=== PATIENT | male | born 1930 | race Caucasian/White ===

== ENCOUNTER 2016-06-28 12:10 | Inpatient (IN) | payer OTHER ==
--- NOTE | 2016-06-28 12:23 | CPEKG ---
Heart Rate: 85 RR Interval: 706 P-R Interval: 208 QRSD Interval: 102 QT Interval: 388 QTC Interval: 462 P [place]: 58 QRS [place]: -56 T Wave [place]: 82 EKG Severity - ABNORMAL ECG - EKG Impression: SINUS RHYTHM EKG Impression: LEFT ANTERIOR FASCICULAR BLOCK EKG Impression: PROBABLE ANTEROSEPTAL INFARCT, AGE INDETERM Electronically Signed By: Ramos Ring 28-Jun-2016 13:44:19
--- NOTE | 2016-06-28 12:37 | EDPHY ---
H & P Stated Complaint: resp Time Seen by Provider: 06/28/16 12:36 - Personal History Tetanus Vaccine Date: 30+ years ago - Medical/Surgical History Hx Asthma: No Hx Chronic Respiratory Disease: Yes Hx Diabetes: No Hx Cardiac Disease: Yes Hx Renal Disease: No Hx Cirrhosis: No Hx Alcoholism: No Hx HIV/AIDS: No Hx Splenectomy or Spleen Trauma: No Other PMH: PE,HIGH CHOL,PROSATE ISSUES - Social History Smoking Status: Never smoked Constitutional: Initial Vital Signs Temperature (C) 36.4 C 06/28/16 12:17 Heart Rate 86 06/28/16 12:17 Respiratory Rate 20 06/28/16 12:17 Blood Pressure 129/85 H 06/28/16 12:17 O2 Sat (%) 82 L 06/28/16 12:17 O2 Delivery Mode Room Air Allergies/Adverse Reactions: No Known Allergies Allergy (Unverified 02/21/13 11:22) Home Medications: Medication Instructions Recorded Aspirin [Aspirin 81mg (OTC)] 162 mg PO HS 01/11/12 Cyanocobalamin (Vitamin B-12) 100 mcg PO DAILY 01/11/12 [Vitamin B-12] Herbals/Supplements -Info Only 1 each PO AD 01/11/12 [place]-3 Fatty Acids/Fish Oil 1,000 mg PO DAILY 01/11/12 [[place] 3 1,000 mg Softgel] Ubidecarenone [Co Q-10] 100 mg PO HS 01/11/12 Atorvastatin Calcium [Lipitor 80 40 mg PO DAILY 01/28/12 mg] Ofloxacin 0.3% [Ocuflox 0.3%] 2 drops EACHEYE QID #1 opht.[id number] 11/13/13 Medical Decision Making - Diagnostics Imaging: Discussed imaging studies w/ call center analyst Radiologist, I viewed and interpreted images myself ED Course/Re-evaluation: CHIEF COMPLAINT: Shortness of breath HISTORY OF PRESENT ILLNESS: 85-year-old gentleman who has recurrent pulmonary emboli and claims that he is taking his Coumadin diligently. Was started on oxygen this past Sunday and he claims he ordered himself and has not really seen a doctor for this. [place] like his oxygen was getting short today and he laid on the ground until he could catch his breath because he was feeling lightheaded. His neighbor who checks on him came in and found him on the ground and called 911. The patient had a room air oxygen saturation of 82%. His oxygen tank was not being utilized. Patient states that he remembers the event specifically any lay down himself so that he would not fall down and he has no injuries and he did not pass out. He denies any chest pain chest pressure or shortness of breath any worse than usual. He says since his recurrent pulmonary emboli he has really had a significant decreased ability to function and can only walk about 100 feet without getting fairly short of breath. REVIEW OF SYSTEMS: A 10 point review of systems was performed and is negative with the exception of the elements mentioned in the history of present illness. PHYSICAL EXAM: HR, BP, O2 Sat, RR. Temp noted. Patient is hypoxemic on room air at 80 82% on 4 L he is in the 90s General Appearance: Alert, well hydrated, appropriate, and non-toxic appearing. Head: Atraumatic without scalp tenderness or obvious injury Eyes: Pupils equal, round, reactive to light and accommodation, EOMI, no trauma , no injection. Ears: Clear bilaterally, no perforation, normal landmarks Nose: Atraumatic, no rhinorrhea, clear. Throat: There is no erythema or exudates, no lesions, normal tonsils, mucus membranes moist. Neck: Supple, 2+ carotid upstroke, nontender, no lymphadenopathy. Respiratory: No retractions, no distress, no wheezes, and no accessory muscle use. Lungs are clear to auscultation bilaterally. Cardiovascular: Regular rate and rhythm, no murmurs, rubs, or gallops. Bilateral carotid, radial, dorsalis pedis, and posterior tibial pulses intact. Good capillary refill all extremities. Gastrointestinal: Abdomen is soft, nontender, non-distended, no masses, no rebound, no guarding, no peritoneal signs. Musculoskeletal: Normal active ROM of all extremities, atraumatic. Neurological: Alert, appropriate, and interactive. The patient has normal DTRs and non-focal cranial nerves, motor, sensory, and cerebellar exam. Skin: No rashes, good turgor, no nodules on palpation. Past medical history: Recurrent pulmonary emboli, patient is a poor historian denies any other medical problems Past surgical history: Noncontributory Family history: Noncontributory Social history: Single, lives alone, has neighbors check on him, denies tobacco drug or alcohol abuse DIAGNOSTICS/PROCEDURES/CRITICAL CARE TIME: The 12 lead EKG was interpreted by myself. See hard copy and/or "tracemaster" electronic copy for interpretation. Normal sinus mechanism with a Q in 3 and inverted T-waves in V3 through V6. I am awaiting old EKG for comparison Study: CT angiography of the chest Indication: history of pulmonary emboli with significant hypoxemia Results: CT scan of the lungs was obtained. The results of the study are additional pulmonary emboli. The study was read by the radiologist, Dr. Gonsales. I viewed the images myself on the PACS system. DIFFERENTIAL DIAGNOSIS: The differential diagnosis for the patient's shortness of breath and hypoxemia included but was not limited to pneumonia, myocardial infarction, acute mountain sickness, high altitude pulmonary edema, congestive heart failure, and pulmonary embolus. MEDICAL DECISION MAKING: This patient has an EKG which may show some anterior lateral ischemia but I am waiting for an old EKG. He has had a history of pulmonary emboli a.m. CT checking in angio of his chest based on his hypoxemia. His i-STAT looks good and his creatinine is okay for angiography. I am also checking laboratory studies. I received a copy of this patient's EKG from February of 2013 any does appear to have similar inverted T-waves in the V3 through V6 leads. The Q-wave in lead 3 however is new This patient's troponin is elevated and so is his BNP. I am still awaiting chest angiography but we will admit him to the hospital for further evaluation and workup due to his hypoxemia potentially a myocardial infarction versus heart strain. I have paged the hospitalist and advertising dispatch clerk at 1:10 p.m. 1:[address] Spoke to hospitalist service. Dr. Simon accepts admission. 1:21 Spoke with [facility]. They will consult and order an echocardiogram. 1:27 Dr. Gonsales, radiologist, reports additional pulmonary embolism. The patient is nontherapeutic on Coumadin. Plan to administer 15mg PO Xarelto to anticoagulate the patient to therapeutic levels. - Data Points Laboratory Results: Laboratory Results 06/28/16 12:10 06/28/16 12:10 06/28/16 06/28/16 06/28/16 12:41 12:10 12:10 WBC RBC Hgb POC Hgb 11.9 gm/dL L gm/dL (14.5-17.3) Hct POC Hct 35 % L % (42.8-50.6) MCV MCH MCHC RDW Plt Count MPV Neut % (Auto) Lymph % (Auto) [place] % (Auto) Eos % (Auto) Baso % (Auto) Nucleat RBC Rel Count Absolute Neuts (auto) Absolute Lymphs (auto) Absolute Monos (auto) Absolute Eos (auto) Absolute Basos (auto) Absolute Nucleated RBC Immature Gran % Immature Gran # PT 17.0 SEC H SEC (12.0-15.0) INR 1.39 H (0.83-1.16) APTT 33.5 SEC SEC (23.0-38.0) POC Sodium 143 mEq/L mEq/L (134-144) Sodium 140 mEq/L mEq/L (134-144) POC Potassium 4.2 mEq/L mEq/L (3.3-5.0) Potassium 3.9 mEq/L mEq/L (3.5-5.2) POC Chloride 107 mEq/L mEq/L (96-108) Chloride 104 mEq/L mEq/L (97-110) Carbon Dioxide 22 mEq/l mEq/l (22-31) Anion Gap 14 mEq/L mEq/L (8-16) POC BUN 28 mg/dL H mg/dL (7-23) BUN 24 mg/dL H mg/dL (7-23) Creatinine 1.1 mg/dL mg/dL (0.7-1.3) POC Creatinine 1.0 mg/dL mg/dL (0.8-1.5) Estimated GFR > 60 Glucose 219 mg/dL H mg/dL (70-100) POC Glucose 133 mg/dL H mg/dL (70-100) Calcium 9.5 mg/dL mg/dL (8.5-10.4) Troponin I 0.292 ng/mL H ng/mL (0-0.034) NT-Pro-B Natriuret Pep 8160 pg/mL H pg/mL (0-450) 06/28/16 12:10 WBC 12.60 10^3/uL H 10^3/uL (3.80-9.50) RBC 4.99 10^6/uL 10^6/uL (4.40-6.38) Hgb 14.7 g/dL g/dL (13.7-17.5) POC Hgb Hct 44.4 % % (40.0-51.0) POC Hct MCV 89.0 fL fL (81.5-99.8) MCH 29.5 pg pg (27.9-34.1) MCHC 33.1 g/dL g/dL (32.4-36.7) RDW 15.9 % H % (11.5-15.2) Plt Count 271 10^3/uL 10^3/uL (150-400) MPV 10.8 fL fL (8.7-11.7) Neut % (Auto) 68.0 % % (39.3-74.2) Lymph % (Auto) 21.7 % % (15.0-45.0) [place] % (Auto) 8.5 % % (4.5-13.0) Eos % (Auto) 0.3 % L % (0.6-7.6) Baso % (Auto) 0.5 % % (0.3-1.7) Nucleat RBC Rel Count 0.0 % % (0.0-0.2) Absolute Neuts (auto) 8.56 10^3/uL H 10^3/uL (1.70-6.50) Absolute Lymphs (auto) 2.74 10^3/uL 10^3/uL (1.00-3.00) Absolute Monos (auto) 1.07 10^3/uL H 10^3/uL (0.30-0.80) Absolute Eos (auto) 0.04 10^3/uL 10^3/uL (0.03-0.40) Absolute Basos (auto) 0.06 10^3/uL 10^3/uL (0.02-0.10) Absolute Nucleated RBC 0.00 10^3/uL 10^3/uL (0-0.01) Immature Gran % 1.0 % % (0.0-1.1) Immature Gran # 0.13 10^3/uL H 10^3/uL (0.00-0.10) PT INR APTT POC Sodium Sodium POC Potassium Potassium POC Chloride Chloride Carbon Dioxide Anion Gap POC BUN BUN Creatinine POC Creatinine Estimated GFR Glucose POC Glucose Calcium Troponin I NT-Pro-B Natriuret Pep Medications Given: Discontinued Medications Sodium Chloride (Ns) 1,000 mls @ 0 mls/hr IV ONCE ONE PRN Reason: Wide Open Stop: 06/28/16 12:50 Last Admin: 06/28/16 12:50 Dose: 1,000 mls Point of Care Test Results: 06/28/16 12:41 POC Sodium 143 POC Potassium 4.2 POC Chloride 107 POC BUN 28 H POC Creatinine 1.0 POC Glucose 133 H Departure - Departure Disposition: [facility] Inpatient Acute Clinical Impression: Chronic obstructive pulmonary disease with acute exacerbation, Chronic hypoxemic respiratory failure, Elevated troponin I level, Elevated troponin Acute exacerbation of congestive heart failure Qualifiers: Congestive heart failure type: systolic Qualified Code(s): I50.23 - Acute on chronic systolic (congestive) heart failure Pulmonary embolism Qualifiers: Pulmonary embolism type: other Chronicity: acute Acute cor pulmonale presence: with acute cor pulmonale Qualified Code(s): I26.09 - Other pulmonary embolism with acute cor pulmonale Condition: Fair Referrals: Patient,NotPresent [Unknown] - As per Instructions Report Scribed for: Ramos Ring Report Scribed by: Fadumo Ospina Date of Report: 06/28/16 Time of Report: 13:31
[2016-06-28 12:45] LABS: ABSOLUTE IMMATURE GRANULOCYTES 0.13 10^3/uL (0.00-0.10); ADD DIFF? NO; ADD MORPH? NO; ADD SCAN? NO; ATYPICAL LYMPHOCYTE FLAG 0 (0-99); FRAGMENT RBC FLAG 0 (0-99); HEMATOCRIT 44.4 % (40.0-51.0); HEMOGLOBIN 14.7 g/dL (13.7-17.5); LEFT SHIFT FLG 0 (0-99); LIPEMIA HEMOLYSIS FLAG 80 (0-99); MEAN CELL HEMOGLOBIN 29.5 pg (27.9-34.1); MEAN CELL HEMOGLOBIN CONCENTR. 33.1 g/dL (32.4-36.7); MEAN PLATELET VOLUME 10.8 fL (8.7-11.7); PLATELET CLUMPS FLAG 10 (0-99); PLATELET COUNT 271 10^3/uL (150-400); RED BLOOD CELL COUNT 4.99 10^6/uL (4.40-6.38); RED CELL DISTRIBUTION WIDTH 15.9 % (11.5-15.2)
[2016-06-28] MEDS ORDERED: NS 1,000 ML IV ONE (12:49)
[2016-06-28 12:52] LABS: ANION GAP 14 mEq/L (8-16); CALCIUM 9.5 mg/dL (8.5-10.4); CARBON DIOXIDE 22 mEq/l (22-31); CHLORIDE 104 mEq/L (97-110); CREATININE 1.1 mg/dL (0.7-1.3); GLOMERULAR FILTRATION RATE > 60; GLUCOSE 219 mg/dL (70-100); POTASSIUM 3.9 mEq/L (3.5-5.2); SODIUM 140 mEq/L (134-144)
[2016-06-28] MEDS ORDERED: IOPAMIDOL (ISOVUE 370) 100 ML BTL IV ONE (12:57)
[2016-06-28 13:04] LABS: TROPONIN I 0.292 ng/mL (0-0.034)
[2016-06-28 13:12] LABS: INR 1.39 (0.83-1.16)
[2016-06-28 13:13] LABS: APTT 33.5 SEC (23.0-38.0)
[2016-06-28] MEDS ORDERED: RIVAROXABAN 15 MG TAB PO ONE (13:45)
--- NOTE | 2016-06-28 15:24 | PDGENHP ---
History and Physical - Chief Complaint SOB - History of Present Illness 85 yo male with hx of chronic PE reportedly on Coumadin presents with Hypoxemia and SOB and found to have Acute on Chronic P.E. During my evaluation he is a very poor historian and appears mildly confused. I have reviewed his records extensively and it appears that he has been a poor historian for several years. He was last seen at [facility] in 2013. Per his report he has been feeling SOB and with intermittent CP for about 3 weeks with worsening of this over the last 3 days. He started himself on portable Oxygen about a week ago. Today he felt like his oxygen was getting short and he laid on the ground until he could catch his breath because he was feeling lightheaded. His neighbor who checks on him came in and found him on the ground and called 911. The patient had a room air oxygen saturation of 82%. His oxygen tank was not being utilized. Patient states that he remembers the event specifically any lay down himself so that he would not fall down and he has no injuries and he did not pass out. He denies any chest pain chest pressure or shortness of breath any worse than usual. He says since his recurrent pulmonary emboli he has really had a significant decreased ability to function and can only walk about 100 feet without getting fairly short of breath. He denies any current CP or SOB and feels that he is better since arriving at the E.D. He has been started on Xarelto and given IVF. He denies any leg swelling or palpitations. He denies fever. There was no evidence of pneumonia on Chest CT. He is a life long smoker, but now report that he has quite. He denies cough. He is alert and oriented. 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 Walks independently. BPH PSHx: Tonsillectomy, Cataract surgery, cardiac cath Family history: Noncontributory Social history: Single, lives alone, has neighbors check on him, denies tobacco drug or alcohol abuse EKG: No acute changes, personally interpreted CTA chest: + bilateral P.E's. History Information - Allergies/Home Medication List Allergies/Adverse Reactions: No Known Allergies Allergy (Unverified 02/21/13 11:22) Home Medications: Aspirin [Aspirin 81mg (OTC)] 162 mg PO HS 01/11/12 [Last Taken 02/20/13] Cyanocobalamin (Vitamin B-12) [Vitamin B-12] 100 mcg PO DAILY 01/11/12 [Last Taken 02/21/13] Herbals/Supplements -Info Only 1 each PO AD 01/11/12 [Last Taken Unknown] [place]ley-3 Fatty Acids/Fish Oil [[place] 3 1,000 mg Softgel] 1,000 mg PO DAILY [Last Taken 02/21/13] Ubidecarenone [Co Q-10] 100 mg PO HS 01/11/12 [Last Taken 02/20/13] Atorvastatin Calcium [Lipitor 80 mg] 40 mg PO DAILY 01/28/12 [Last Taken ] I have personally reviewed and updated: family history, medical history, social history, surgical history - Social History Smoking Status: Never smoked Review of Systems ROS: 10pt was reviewed & negative except for what was stated in HPI & below Physical Exam Temp Pulse Resp BP Pulse Ox 36.4 C 66 20 102/63 95 06/28/16 12:23 06/28/16 15:14 06/28/16 15:14 06/28/16 15:14 06/28/16 15:14 O2 (L/minute) 4 Constitutional: no apparent distress, appears nourished Eyes: PERRL, EOMI Ears, Nose, Mouth, Throat: hearing normal, dry mucous membranes, No moist mucous membranes Cardiovascular: regular rate and rhythym, no murmur, rub, or gallop, systolic murmur, No JVD Respiratory: no respiratory distress, reduced air movement, No clear to auscultation Gastrointestinal: normoactive bowel sounds, soft, non-tender abdomen, no palpable masses Genitourinary: no bladder fullness Skin: warm Neurologic: AAOx3 Psychiatric: poor insight, poor memory Lymph, Heme, Immunologic: no cervical LAD Lab Data & Imaging Review 06/28/16 12:10 06/28/16 12:10 WBC 12.60 10^3/uL (3.80-9.50) H 06/28/16 12:10 RBC 4.99 10^6/uL (4.40-6.38) 06/28/16 12:10 Hgb 14.7 g/dL (13.7-17.5) 06/28/16 12:10 POC Hgb 11.9 gm/dL (14.5-17.3) L 06/28/16 12:41 Hct 44.4 % (40.0-51.0) 06/28/16 12:10 POC Hct 35 % (42.8-50.6) L 06/28/16 12:41 MCV 89.0 fL (81.5-99.8) 06/28/16 12:10 MCH 29.5 pg (27.9-34.1) 06/28/16 12:10 MCHC 33.1 g/dL (32.4-36.7) 06/28/16 12:10 RDW 15.9 % (11.5-15.2) H 06/28/16 12:10 Plt Count 271 10^3/uL (150-400) 06/28/16 12:10 MPV 10.8 fL (8.7-11.7) 06/28/16 12:10 Neut % (Auto) 68.0 % (39.3-74.2) 06/28/16 12:10 Lymph % (Auto) 21.7 % (15.0-45.0) 06/28/16 12:10 [place] % (Auto) 8.5 % (4.5-13.0) 06/28/16 12:10 Eos % (Auto) 0.3 % (0.6-7.6) L 06/28/16 12:10 Baso % (Auto) 0.5 % (0.3-1.7) 06/28/16 12:10 Nucleat RBC Rel Count 0.0 % (0.0-0.2) 06/28/16 12:10 Absolute Neuts (auto) 8.56 10^3/uL (1.70-6.50) H 06/28/16 12:10 Absolute Lymphs (auto) 2.74 10^3/uL (1.00-3.00) 06/28/16 12:10 Absolute Monos (auto) 1.07 10^3/uL (0.30-0.80) H 06/28/16 12:10 Absolute Eos (auto) 0.04 10^3/uL (0.03-0.40) 06/28/16 12:10 Absolute Basos (auto) 0.06 10^3/uL (0.02-0.10) 06/28/16 12:10 Absolute Nucleated RBC 0.00 10^3/uL (0-0.01) 06/28/16 12:10 Immature Gran % 1.0 % (0.0-1.1) 06/28/16 12:10 Immature Gran # 0.13 10^3/uL (0.00-0.10) H 06/28/16 12:10 PT 17.0 SEC (12.0-15.0) H 06/28/16 12:10 INR 1.39 (0.83-1.16) H 06/28/16 12:10 APTT 33.5 SEC (23.0-38.0) 06/28/16 12:10 POC Sodium 143 mEq/L (134-144) 06/28/16 12:41 Sodium 140 mEq/L (134-144) 06/28/16 12:10 POC Potassium 4.2 mEq/L (3.3-5.0) 06/28/16 12:41 Potassium 3.9 mEq/L (3.5-5.2) 06/28/16 12:10 POC Chloride 107 mEq/L (96-108) 06/28/16 12:41 Chloride 104 mEq/L (97-110) 06/28/16 12:10 Carbon Dioxide 22 mEq/l (22-31) 06/28/16 12:10 Anion Gap 14 mEq/L (8-16) 06/28/16 12:10 POC BUN 28 mg/dL (7-23) H 06/28/16 12:41 BUN 24 mg/dL (7-23) H 06/28/16 12:10 Creatinine 1.1 mg/dL (0.7-1.3) 06/28/16 12:10 POC Creatinine 1.0 mg/dL (0.8-1.5) 06/28/16 12:41 Estimated GFR > 60 06/28/16 12:10 Glucose 219 mg/dL (70-100) H 06/28/16 12:10 POC Glucose 133 mg/dL (70-100) H 06/28/16 12:41 Calcium 9.5 mg/dL (8.5-10.4) 06/28/16 12:10 Troponin I 0.292 ng/mL (0-0.034) H 06/28/16 12:10 NT-Pro-B Natriuret Pep 8160 pg/mL (0-450) H 06/28/16 12:10 Assessment & Plan Assessment: Acute exacerbation of congestive heart failure (Acute) Chronic hypoxemic respiratory failure (Acute) Chronic obstructive pulmonary disease with acute exacerbation (Acute) Elevated troponin (Acute) Elevated troponin I level (Acute) Pulmonary embolism (Acute) Plan: #Acute on Chronic Bilateral P.E. #Query Dehydration. -s/p IVF in the E.D. #Poor historian #Encephalopathy, etiology unclear. Unclear baseline. #Indeterminate troponin with hx of CAD #HLD Hx of CVA Plan: Admit continue with Xarelto which was started in the E.D. It is unclear if he has been taking his coumadin or not. A review of the medical record looks like he has been on it intermittently. Do not suspect acute Cardiac event. Given slight elevated trop will obtain serial trops and EKG. Suspect slight elevation is due to cardiac strain. A TTE has been ordered and this is pending. Cardiac evaluation by [facility] is pending Continue home meds which are being compiled Will provide small amount of additional IVF I do not see a clear source of infection and no evidence of pneumonia. slight leukocytosis noted. Will follow clinically. Denies fevers. Reports feeling better already PT/OT Continue home meds as appropriate. As of this note, the medication list has not been compiled. He denies taking any meds other than supplements.
[2016-06-28] MEDS ORDERED: HYDROCODONE/APAP 5/325 TAB PO PRN (15:39)
[2016-06-28] MEDS ORDERED: ONDANSETRON DISINTEGRATING 4 MG TAB PO PRN (15:39)
[2016-06-28] MEDS ORDERED: ONDANSETRON 4 MG/2 ML VIAL IVP PRN (15:39)
[2016-06-28] MEDS ORDERED: ALBUTEROL 3 ML DEYVIAL IH PRN (15:39)
[2016-06-28] MEDS ORDERED: ACETAMINOPHEN 325 MG TAB PO PRN (15:39)
[2016-06-28] MEDS ORDERED: NS 500 ML IV SCH (15:45)
--- NOTE | 2016-06-28 16:43 | ECHO ---
[id number] + + [address] : : [place] [address] : : [phone] + + Adult Echocardiographic Report + ------+ :Name: BILL WEST Marin Date: 06/28/2016 01:45 PM : : Hospital Admission Number: [id number] Locati on: ER: :: 1930 Gender: Male Height: 68 in : :Age: 85 yrs Race: WH Weight: 155 lb : :Reason For Study: elev bnp and mild trop bump : : BSA: 1.8 meter s2 : :History: cad lung disease : + ------+ MMode/2D Measurements \T\ Calculations IVSd: 1.1 cm LVIDd: 3.8 cm FS: 24.7 % Ao root diam: LVPWd: 0.67 cm LVIDs: 2.8 cm EDV(Teich): 60.4 ml3.1 cm ESV(Teich): 30.3 ml EF(Teich): 49.8 % LVOT diam: 3.5 cm LVLd ap4: 8.0 cm SV(MOD-sp4): LVOT area: EDV(MOD-sp4): 42.0 ml 9.6 cm2 79.0 ml LVLs ap4: 6.9 cm ESV(MOD-sp4): 37.0 ml EF(MOD-sp4): 53.2 % Normal Measurement Values: + + :LVIDd (3.5-5.7cm) IVSd (0.6-1.1cm) LVPWd (0.6-1.1cm) Aortic Root (2.0-3.7cm)Left Atrium (1.5-4.0cm): :LV Vol(d) (76-115ml) LV Vol(s) (29-48ml) Ejec Fraction (50-65%)PV Wan (0.6- 1.2m/s) TV Wan (0.4-1.0m/s) : :MV E Wan (0.8-1.0m/s)MV A Wan (0.3-1.0m/s)LVOT Wan (0.7-1.2m/s) Asc Ao Wan ( 0.9-1.8m/s) : + + Doppler Measurements \T\ Calculations MV E max wan: Ao V2 max: LV V1 max: PA V2 max: 51.3 cm/sec 114.0 cm/sec 72.1 cm/sec 56.3 cm/sec MV A max wan: Ao max P.2 mmHgLV V1 max PG: PA max P.4 cm/sec MARCELLO(V,D): 6.1 cm2 2.1 mmHg 1.3 mmHg MV E/A: 0.60 MV dec time: 0.23 sec TR max wan: 398.0 cm/sec TR max P.4 mmHg RAP systole: 10.0 mmHg RVSP(TR): 73.4 mmHg Left Ventricle The left ventricle is normal in size. There is normal left ventricular wall thickness. Left ventricular systolic function is low normal. Ejection Fraction = 45-50%. There is Doppler evidence for diastolic dysfunction. Distal anterior septum is bright and hypokinetic consistent with old GA. It is difficult to rule out new wall motion abnormalities due to poor endocardial definition. Flattened septum is consistent with RV pressure/volume overload. Right Ventricle The right ventricle is mildly dilated. The right ventricular systolic function is mildly reduced. Atria The left atrial size is normal. Right atrial size is normal. A dilated inferior vena cava suggests increased right atrial pressure. Mitral Valve The mitral valve is normal in structure and function. There is mild mitral regurgitation. Tricuspid Valve The tricuspid valve is normal in structure and function. There is no tricuspid stenosis. There is moderate tricuspid regurgitation. Right ventricular systolic pressure is 73mmHg. There is Doppler evidence for severe pulmonary hypertension. Aortic Valve The aortic valve is trileaflet. There is mild aortic valve calcification. There is no aortic stenosis. There is no aortic insufficiency. Pulmonic Valve The pulmonic valve is not well visualized. Great Vessels The aortic root is normal size. Pericardium/Pleural There is no pericardial effusion. Conclusion A two-dimensional transthoracic echocardiogram with M-mode and Doppler was performed. The study was technically difficult. (1) Left ventricular systolic ejection fraction was mildly reduced (45-50%) - anteroseptal hypokinesis was noted (2) Diastolic dysfunction was present (3) No left ventricular hypertrophy (4) Mild dilation of the right ventricular cavity with mild reduction in systolic function (5) Normal atrial dimensions (6) Mild mitral regurgitation (7) Trileaflet aortic valve with mild sclerosis, no stenosis, and no appreciable insufficiency (8) Moderate tricuspid regurgitation - RVSP was estimated to be >70 mm Hg (9) Poor visualization of the pulmonic valve (10) In comparison to prior echocardiogram from 2012, there continues to be similar LVEF noted. RVSP is double what was noted on prior. Final Reading Physician: Constantine Estrada signed on 06/28/2016 04:41 PM Ordering Physician: Jacobo Gilbert Performed By: Sonya Nash
[2016-06-28] MEDS: RIVAROXABAN 15 MG TAB PO SCH (17:32)
[2016-06-29 04:59] LABS: % IMMATURE GRANULYOCYTES 0.9 % (0.0-1.1); ABSOLUTE IMMATURE GRANULOCYTES 0.09 10^3/uL (0.00-0.10); ADD DIFF? NO; ADD MORPH? NO; ADD SCAN? NO; ATYPICAL LYMPHOCYTE FLAG 0 (0-99); FRAGMENT RBC FLAG 0 (0-99); HEMATOCRIT 38.3 % (40.0-51.0); LEFT SHIFT FLG 10 (0-99); LIPEMIA HEMOLYSIS FLAG 90 (0-99); MEAN CELL HEMOGLOBIN 30.1 pg (27.9-34.1); MEAN CELL HEMOGLOBIN CONCENTR. 33.9 g/dL (32.4-36.7); MEAN CELL VOLUME 88.7 fL (81.5-99.8); MEAN PLATELET VOLUME 10.7 fL (8.7-11.7); PLATELET CLUMPS FLAG 10 (0-99); PLATELET COUNT 218 10^3/uL (150-400); RED BLOOD CELL COUNT 4.32 10^6/uL (4.40-6.38)
[2016-06-29 05:08] LABS: ANION GAP 8 mEq/L (8-16); CALCIUM 8.8 mg/dL (8.5-10.4); CARBON DIOXIDE 23 mEq/l (22-31); CHLORIDE 109 mEq/L (97-110); GLOMERULAR FILTRATION RATE > 60; GLUCOSE 87 mg/dL (70-100); POTASSIUM 4.6 mEq/L (3.5-5.2); SODIUM 140 mEq/L (134-144)
[2016-06-29 05:18] LABS: TROPONIN I 0.263 ng/mL (0-0.034)
[2016-06-29] MEDS: RIVAROXABAN 15 MG TAB PO SCH (08:06)
--- NOTE | 2016-06-29 08:38 | CPEKG ---
Heart Rate: 61 RR Interval: 984 P-R Interval: 192 QRSD Interval: 98 QT Interval: 512 QTC Interval: 516 P [place]: 50 QRS [place]: -48 T Wave [place]: 70 EKG Severity - ABNORMAL ECG - EKG Impression: SINUS RHYTHM EKG Impression: VENTRICULAR PREMATURE COMPLEX EKG Impression: LEFT ANTERIOR FASCICULAR BLOCK EKG Impression: ABNRM R PROG, CONSIDER ASMI OR LEAD PLACEMENT EKG Impression: ABNORMAL T, CONSIDER ISCHEMIA, ANT-LAT LEADS EKG Impression: PROLONGED QT INTERVAL Electronically Signed By: Maine Steiner 29-Jun-2016 12:06:31
[2016-06-29] MEDS ORDERED: NON-FORMULARY NEW DRUG (Simvastatin [Zocor] 40 MG) PO SCH (09:00)
[2016-06-29] MEDS: ATORVASTATIN CALCIUM 20 MG TAB PO SCH (09:37)
[2016-06-29] MEDS: CYANO/VITAMIN B12 1000 MCG TAB PO SCH (09:37)
[2016-06-29] MEDS ORDERED: RIVAROXABAN 10 MG TAB PO ONE (13:27)
--- NOTE | 2016-06-29 17:42 | HOSPPROG ---
Hospitalist Progress Note Assessment/Plan: * Acute PE -patient admits to cutting warfarin dose in half due to bleeding -suspect he will do better on warfarin than Xarelto -change to Lovenox bridge with re-initiation of warfarin * Troponin elevation - suspect RV strain due to large PE * Acute respiratory failure - O2 * CAD/stents * h/o CVA * Long Qt - recheck EKG in am Subjective: No complaints. Has been bleeding at home, reduced coumadin by half without talking to his doctor Objective: Vital Signs Temp Pulse Resp BP Pulse Ox 36.3 C 65 20 105/59 L 92 06/29/16 15:14 06/29/16 15:14 06/29/16 15:14 06/29/16 15:14 06/29/16 15:14 06/28/16 06/29/16 06/30/16 05:59 05:59 05:59 Output Total 175 Balance -175 PT 17.0 SEC (12.0-15.0) H 06/28/16 12:10 INR 1.39 (0.83-1.16) H 06/28/16 12:10 CTA - large PE EKG viewed, my personal interpretation is - possible long Qt Laboratory Tests 06/28/16 12:10 INR 1.39 H - Physical Exam Constitutional: no apparent distress, appears nourished, not in pain Cardiovascular: regular rate and rhythym, no murmur, rub, or gallop Respiratory: no respiratory distress, no rales or rhonchi, clear to auscultation Gastrointestinal: normoactive bowel sounds, soft, non-tender abdomen, no palpable masses Skin: no rashes or abrasions, no fluctuance, no induration Neurologic: AAOx3, sensation intact bilaterally Psychiatric: interacting appropriately, not anxious, not encephalopathic, thought process linear ICD10 Worksheet Patient Problems: Problems Problem Status Onset Acute exacerbation of congestive heart failure Acute Chronic hypoxemic respiratory failure Acute Chronic obstructive pulmonary disease with acute exacerbation Acute Elevated troponin Acute Elevated troponin I level Acute Pulmonary embolism Acute CAD - Coronary arteriosclerosis Active Pulmonary embolism Active
[2016-06-29] MEDS: WARFARIN SODIUM 5 MG TAB PO SCH (18:05)
[2016-06-29] MEDS: ENOXAPARIN 60 MG/0.6 ML SYR SC SCH (21:38)
[2016-06-30 04:58] LABS: % IMMATURE GRANULYOCYTES 0.9 % (0.0-1.1); ABSOLUTE IMMATURE GRANULOCYTES 0.07 10^3/uL (0.00-0.10); ADD DIFF? NO; ADD MORPH? NO; ADD SCAN? NO; ATYPICAL LYMPHOCYTE FLAG 10 (0-99); FRAGMENT RBC FLAG 20 (0-99); HEMATOCRIT 37.4 % (40.0-51.0); HEMOGLOBIN 12.4 g/dL (13.7-17.5); LEFT SHIFT FLG 0 (0-99); LIPEMIA HEMOLYSIS FLAG 80 (0-99); MEAN CELL HEMOGLOBIN 29.6 pg (27.9-34.1); MEAN CELL HEMOGLOBIN CONCENTR. 33.2 g/dL (32.4-36.7); MEAN CELL VOLUME 89.3 fL (81.5-99.8); MEAN PLATELET VOLUME 10.8 fL (8.7-11.7); PLATELET CLUMPS FLAG 0 (0-99); PLATELET COUNT 263 10^3/uL (150-400); RED BLOOD CELL COUNT 4.19 10^6/uL (4.40-6.38); RED CELL DISTRIBUTION WIDTH 15.9 % (11.5-15.2)
[2016-06-30 05:10] LABS: INR 2.27 (0.83-1.16); PROTIME(PATIENT) 25.2 SEC (12.0-15.0)
[2016-06-30 05:22] LABS: ANION GAP 7 mEq/L (8-16); CALCIUM 8.9 mg/dL (8.5-10.4); CARBON DIOXIDE 24 mEq/l (22-31); CHLORIDE 108 mEq/L (97-110); GLOMERULAR FILTRATION RATE > 60; GLUCOSE 90 mg/dL (70-100); MAGNESIUM 1.9 mg/dL (1.6-2.3); POTASSIUM 4.3 mEq/L (3.5-5.2); SODIUM 139 mEq/L (134-144)
--- NOTE | 2016-06-30 08:44 | CPEKG ---
Heart Rate: 53 RR Interval: 1132 P-R Interval: 184 QRSD Interval: 102 QT Interval: 452 QTC Interval: 425 P [place]: 51 QRS [place]: -57 T Wave [place]: 55 EKG Severity - ABNORMAL ECG - EKG Impression: SINUS RHYTHM EKG Impression: ATRIAL PREMATURE COMPLEX EKG Impression: LEFT ANTERIOR FASCICULAR BLOCK EKG Impression: ABNRM R PROG, CONSIDER ASMI OR LEAD PLACEMENT EKG Impression: BORDERLINE T ABNORMALITIES, ANTERIOR LEADS Electronically Signed By: Maine Steiner 30-Jun-2016 11:40:48
[2016-06-30] MEDS: ATORVASTATIN CALCIUM 20 MG TAB PO SCH (09:02)
[2016-06-30] MEDS: CYANO/VITAMIN B12 1000 MCG TAB PO SCH (09:02)
[2016-06-30] MEDS: ENOXAPARIN 60 MG/0.6 ML SYR SC SCH ×2 (09:02→21:37)
--- NOTE | 2016-06-30 16:01 | PDPCPN ---
Palliative Care Progress Note Assessment/Plan: Referring provider: Dr Sorensen Reason for consult: Complex medical decision making Symptom control HPI: Nick Adams is a 85 yo male with PMH prostate CA, CAD, CVA and recurrent PE' s admitted to the hospital for hypoxia and lightheadedness. Ct chest with acute on chronic PE. Per patient he started cutting his dose of warfarin in half 4 weeks ago due to bleeding problems. He has right sided numbness from previous CVA 9 years ago and ongoing dyspnea on exertion for the past 5 years due to PEs. He started himself on oxygen on Sunday and was found on the ground by his neighbor who called 911. Palliative care consulted for complex medical decision making. Nick states up until 9 years ago his quality of life was excellent. It decreased some when he had his CVA as he was not able to travel or play golf. He then had a PE 5 years ago which dramatically reduce his quality of life to his baseline of not being able to walk >100 feet without dyspnea. He is able to still drive and goes to the store once a week and sometimes out to lunch with a friend then but otherwise stays at home by himself. He mostly just watches tv all day. He has a neighbor who checks in on him frequently who is available to help if he needs it. He stated he would not want any life prolonging measures as his quality of life is already poor. He is hoping to be able to get back home and maintain his ADLs by himself. If he is not able to improve from current lower baseline then he would want to focus on comfort care only. Filled out a MOST form and scanned into the chart. His brother Scott is his MDPOA but they have not had a detailed discussion about his end of life wishes. Assessment: Physical: - Dyspnea: with any ambulation - oxygen as needed - fan for subjective dyspnea - can also consider low dose roxanol if severe and persists. - constipation - at risk if using opiates - bowel protocol if on opiates. Emotional/psychological: Doing ok. Has support from his neighbors and some friends. Advanced Care Planning: Is patient decisional?: Yes Code Status: DNR/DNI- comfort MD POA: brother Scott is MDPOA. Plan: He would like to return home but needs to go to rehab for a temporary stay to increase his abilities for ADLs. He is not interested in other life prolonging measures as his quality of life has been poor and is now even worse due to his inability to care for himself. 06/30/16 16:07 Subjective: I still can't catch my breathe Objective: Social History: Never , no children. Retired [employer] worked for [employer]. Used to enjoy traveling and golfing but now is only able to sit and watch TV. Has a brother in [place] whom he is close to. Also has another brother and 2 sisters but is not close to them. Has a neighbor who is very involved and "watches out for him". Medication list reviewed ROS: General: fatigue, weakness ENT: negative Resp: dyspnea GI: negative : negative MS: negative Skin: negative Neuro: negative Psych: negative Functional assessment: PPS: 50% Functional status: needs some assistance with ADLs. Vital Signs Temp Pulse Resp BP Pulse Ox 36.5 C 50 L 20 105/47 L 95 06/30/16 15:37 06/30/16 15:37 06/30/16 15:37 06/30/16 15:37 06/30/16 15:37 Laboratory Results 06/30/16 03:52 06/30/16 03:52 06/29/16 06/30/16 07/01/16 05:59 05:59 05:59 Intake Total 1400 Output Total 675 Balance 725 PT 25.2 SEC (12.0-15.0) H D 06/30/16 03:52 INR 2.27 (0.83-1.16) H 06/30/16 03:52 Physical Exam - Physical Exam General Appearance: alert, no apparent distress Respiratory: No respiratory distress, No accessory muscle use Skin: normal color, warm/dry Extremities: No pedal edema Neuro/Psych: alert, oriented x 3 ICD10 Worksheet Patient Problems: Problems Problem Status Onset Acute exacerbation of congestive heart failure Acute Chronic hypoxemic respiratory failure Acute Chronic obstructive pulmonary disease with acute exacerbation Acute Elevated troponin Acute Elevated troponin I level Acute Palliative care encounter Acute Pulmonary embolism Acute CAD - Coronary arteriosclerosis Active Pulmonary embolism Active - ICD10 Problem Qualifiers (1) Palliative care encounter
[2016-06-30] MEDS: WARFARIN SODIUM 5 MG TAB PO SCH (16:29)
--- NOTE | 2016-06-30 16:47 | HOSPPROG ---
Hospitalist Progress Note Assessment/Plan: * Acute PE -patient admits to cutting warfarin dose in half due to bleeding -suspect he will do better on warfarin than Xarelto -change to Lovenox bridge with re-initiation of warfarin -suspect high INR today due to residual Xarelto effect -continue lovenox * Troponin elevation - suspect RV strain due to large PE * Acute respiratory failure - O2 * CAD/stents * h/o CVA Subjective: needs lots of O2 with ambulation. he has changed his mind regarding rehab Objective: Vital Signs Temp Pulse Resp BP Pulse Ox 36.5 C 50 L 20 105/47 L 95 06/30/16 15:37 06/30/16 15:37 06/30/16 15:37 06/30/16 15:37 06/30/16 15:37 Laboratory Results 06/30/16 03:52 06/30/16 03:52 06/29/16 06/30/16 07/01/16 05:59 05:59 05:59 Intake Total 1400 Output Total 675 Balance 725 PT 25.2 SEC (12.0-15.0) H D 06/30/16 03:52 INR 2.27 (0.83-1.16) H 06/30/16 03:52 d/w palliative care [employer] Gabbi Schroeder - patient wishes comfort mostly. Wants PE tx and rehab EKG viewed, my personal interpretation is - Qt not that long - Physical Exam Constitutional: no apparent distress, appears nourished, not in pain Cardiovascular: regular rate and rhythym, no murmur, rub, or gallop Respiratory: no respiratory distress, no rales or rhonchi, clear to auscultation Gastrointestinal: normoactive bowel sounds, soft, non-tender abdomen, no palpable masses Skin: no rashes or abrasions, no fluctuance, no induration Neurologic: AAOx3, sensation intact bilaterally Psychiatric: interacting appropriately, not anxious, not encephalopathic, thought process linear ICD10 Worksheet Patient Problems: Problems Problem Status Onset Acute exacerbation of congestive heart failure Acute Chronic hypoxemic respiratory failure Acute Chronic obstructive pulmonary disease with acute exacerbation Acute Elevated troponin Acute Elevated troponin I level Acute Palliative care encounter Acute Pulmonary embolism Acute CAD - Coronary arteriosclerosis Active Pulmonary embolism Active
[2016-07-01 05:34] LABS: INR 1.67 (0.83-1.16); PROTIME(PATIENT) 19.7 SEC (12.0-15.0)
[2016-07-01] MEDS: CYANO/VITAMIN B12 1000 MCG TAB PO SCH (08:31)
[2016-07-01] MEDS: ATORVASTATIN CALCIUM 20 MG TAB PO SCH (08:31)
[2016-07-01] MEDS: ENOXAPARIN 60 MG/0.6 ML SYR SC SCH ×2 (08:31→20:58)
--- NOTE | 2016-07-01 17:09 | HOSPPROG ---
Hospitalist Progress Note Assessment/Plan: * Acute PE -patient admits to cutting warfarin dose in half due to bleeding -Lovenox until INR > 2 * Troponin elevation - suspect RV strain due to large PE * Acute respiratory failure - O2 -check CXR * CAD/stents * h/o CVA Subjective: No complaints. Objective: Vital Signs Temp Pulse Resp BP Pulse Ox 36.4 C 60 18 97/51 L 94 07/01/16 15:49 07/01/16 15:49 07/01/16 15:49 07/01/16 15:52 07/01/16 15:49 Laboratory Results 06/30/16 03:52 06/30/16 03:52 06/30/16 07/01/16 07/02/16 05:59 05:59 05:59 Intake Total 1400 450 Output Total 675 200 450 Balance 725 250 -450 PT 19.7 SEC (12.0-15.0) H 07/01/16 03:45 INR 1.67 (0.83-1.16) H 07/01/16 03:45 - Physical Exam Constitutional: no apparent distress, appears nourished, not in pain Cardiovascular: regular rate and rhythym, no murmur, rub, or gallop Respiratory: no respiratory distress, no rales or rhonchi, clear to auscultation Gastrointestinal: normoactive bowel sounds, soft, non-tender abdomen, no palpable masses Skin: no rashes or abrasions, no fluctuance, no induration Neurologic: AAOx3, sensation intact bilaterally Psychiatric: interacting appropriately, not anxious, not encephalopathic, thought process linear ICD10 Worksheet Patient Problems: Problems Problem Status Onset Acute exacerbation of congestive heart failure Acute Chronic hypoxemic respiratory failure Acute Chronic obstructive pulmonary disease with acute exacerbation Acute Elevated troponin Acute Elevated troponin I level Acute Palliative care encounter Acute Pulmonary embolism Acute CAD - Coronary arteriosclerosis Active Pulmonary embolism Active
[2016-07-01] MEDS: WARFARIN SODIUM 5 MG TAB PO SCH (18:16)
[2016-07-02 07:54] LABS: % IMMATURE GRANULYOCYTES 0.7 % (0.0-1.1); ABSOLUTE IMMATURE GRANULOCYTES 0.06 10^3/uL (0.00-0.10); ADD DIFF? NO; ADD MORPH? NO; ADD SCAN? NO; ATYPICAL LYMPHOCYTE FLAG 0 (0-99); FRAGMENT RBC FLAG 20 (0-99); HEMATOCRIT 37.6 % (40.0-51.0); HEMOGLOBIN 12.9 g/dL (13.7-17.5); LEFT SHIFT FLG 10 (0-99); LIPEMIA HEMOLYSIS FLAG 90 (0-99); MEAN CELL HEMOGLOBIN 30.3 pg (27.9-34.1); MEAN CELL HEMOGLOBIN CONCENTR. 34.3 g/dL (32.4-36.7); MEAN CELL VOLUME 88.3 fL (81.5-99.8); MEAN PLATELET VOLUME 10.8 fL (8.7-11.7); PLATELET CLUMPS FLAG 10 (0-99); PLATELET COUNT 311 10^3/uL (150-400); RED BLOOD CELL COUNT 4.26 10^6/uL (4.40-6.38); RED CELL DISTRIBUTION WIDTH 15.7 % (11.5-15.2)
[2016-07-02 07:56] LABS: INR 1.51 (0.83-1.16); PROTIME(PATIENT) 18.2 SEC (12.0-15.0)
[2016-07-02 08:13] LABS: ANION GAP 6 mEq/L (8-16); CALCIUM 9.1 mg/dL (8.5-10.4); CARBON DIOXIDE 25 mEq/l (22-31); CHLORIDE 109 mEq/L (97-110); CREATININE 0.9 mg/dL (0.7-1.3); GLOMERULAR FILTRATION RATE > 60; GLUCOSE 104 mg/dL (70-100); POTASSIUM 4.6 mEq/L (3.5-5.2); SODIUM 140 mEq/L (134-144)
[2016-07-02 08:58] VITALS: BP 109/84; PULSE 57; RESP 20; TEMP 97.6; O2SAT 91
[2016-07-02] MEDS: ATORVASTATIN CALCIUM 20 MG TAB PO SCH (09:07)
[2016-07-02] MEDS: ENOXAPARIN 60 MG/0.6 ML SYR SC SCH (09:08)
[2016-07-02] MEDS: CYANO/VITAMIN B12 1000 MCG TAB PO SCH (09:08)
--- NOTE | 2016-07-02 09:40 | PDIAF ---
- Diagnosis Diagnosis: acute pe Code Status: Do Not Resuscitate - Medication Management Discharge Medications: Medications to Continue on Transfer Herbals/Supplements -Info Only 1 each PO AD 01/11/12 [Last Taken Unknown] Cyanocobalamin [Vitamin B12 (*)] 1,000 mcg PO DAILY 06/29/16 [Last Taken Unknown ] [place]-3 Fatty Acids [Fish Oil 1000 mg (*)] 1,000 mg PO DAILY 06/29/16 [Last Taken Unknown] Simvastatin [Zocor] 40 mg PO DAILY 06/29/16 [Last Taken 06/27/16] Enoxaparin [Lovenox 60 MG (*)] 60 mg SC BID #10 syr 07/02/16 [Last Taken Unknown ] Warfarin Sodium [Coumadin 5MG (*)] 5 mg PO DAILY AT 4PM #30 tab 07/02/16 [Last Taken Unknown] Discharge Medications: Refer to the Discharge Home Medication list for PRN reason. - Orders Services needed: Physical Therapy, Occupational Therapy Oxygen: titrate sat 91-92% Diet Recommendation: no restrictions on diet - Labs/Radiology PT/INR Date: 07/03/16 (check daily until INR>2) Other Lab Name, Date and Time: Stop Lovenox when INR > 2 - Follow Up Care Current Providers and Referrals: Patient,NotPresent [Unknown] - As per Instructions
--- NOTE | 2016-07-02 18:04 | GDS ---
[f rep st] DISCHARGE SUMMARY DISCHARGE DIAGNOSES: 1. Acute pulmonary embolus. 2. Right ventricular strain with troponin elevation. 3. Acute respiratory failure. 4. Coronary artery disease, status post previous stent. 5. History of stroke. HISTORY: The patient is an 85-year-old male on warfarin at home due to a history of prior pulmonary embolus. He was having some oozing and bleeding from his skin so he cut his warfarin dose in half without notifying a physician. He presented to the hospital with acute worsening shortness of breat h and was found to have quite extensive bilateral PE. His INR was subtherapeutic. He is having no further bleeding issues at this time. He was initiated on Lovenox and his warfarin was increased ba ck to his previous full dose. Pulmonary embolus was of significant size and he is requiring 4 L of oxygen. Troponin did bump, due to RV strain, to 0.3. An echocardiogram showed a right ventricular systolic blood pressure greater than 70. He was observed in the hospital for multiple days and appe ars to be quite stable. He is not yet therapeutic on his warfarin, but can continue with Lovenox un til INR is greater than 2. He is transferring to [facility] prior to returning home. DISCHARGE MEDICATIONS: Please see computer record for full detailed list. New medications: 1. Lovenox 60 mg subcu b.i.d. 2. Warfarin increased back to 5 mg p.o. daily. ADDITIONAL DISCHARGE INSTRUCTIONS: 1. Titrate oxygen to saturation of 91% to 92%. 2. PT/OT at [facility]. 3. Check INR daily until INR is greater than 2. 4. Stop Lovenox when INR greater than 2. 5. DNR. He did have a Palliative Care consultation during this hospitalization and quality of life is very important to him and does not want aggressive care if he cannot improve back to his previou s baseline. Greater than 30 minutes' time was spent arranging this discharge. Patient was seen and examined by me on the day of discharge. /[id number]/MODL
== END 2016-07-02 11:50 | DRG 175 ==
LOC: EDUNIT# → F2W 15:23 → OBSVTOIN 06-29 09:03
PROVIDERS: ADMIT Family Medicine; ATTEND Internal Medicine
DX: I26.99 Other pulmonary embolism without acute cor pulmonale (principal); T45.516A Underdosing of anticoagulants, initial encounter; J96.01 Acute respiratory failure with hypoxia; I25.10 Atherosclerotic heart disease of native coronary artery without angina pectoris; Z95.5 Presence of coronary angioplasty implant and graft; Z86.711 Personal history of pulmonary embolism; Z79.01 Long term (current) use of anticoagulants; Z86.73 Personal history of transient ischemic attack (TIA), and cerebral infarction without residual deficits; E78.00 Pure hypercholesterolemia, unspecified
CPT/HCPCS: 82947-QW; 97116-GP; 97161-GP; 97165-GO; 97530-GO; 97535-GO; G0378; G8978-GP-CI; G8979-GP-CI; G8987-GO-CJ; G8988-GO-CH; J1650; Q9967

== ENCOUNTER 2017-06-17 22:11 | Inpatient (IN) | payer OTHER ==
[2017-06-17] MEDS ORDERED: IPRATROPIUM/ALBUTEROL 3 ML DEYVIAL IH ONE (22:15)
[2017-06-17 22:38] LABS: PLATELET COUNT 418 10^3/uL (150-400)
--- NOTE | 2017-06-17 22:45 | EDPHY ---
H & P Stated Complaint: HYPOXIA 79% ON 2L NC AT HOME Time Seen by Provider: 06/17/17 22:14 HPI/ROS: HPI The patient presents with shortness of breath and hypoxia. He is brought in by ambulance from the [facility] for he resides by himself. He normally wears 2 L nasal cannula and has oxygen saturations of 90% and above. However about 2 days ago he noticed that his oxygen readings were about 85 and he had difficulty getting them higher than 88%. He increased his flow, however he still was hypoxic. He says he has mild rhinorrhea and a cough, though this is usual for him. He denies any over worsening shortness of breath, chest pain, palpitations, leg swelling, fever. REVIEW OF SYSTEMS Constitutional: No fever, no chills. Eyes: No discharge. ENT: No sore throat. Cardiovascular: No chest pain, no palpitations. Respiratory: No cough, no shortness of breath. Gastrointestinal: No abdominal pain, no vomiting. Genitourinary: No hematuria. Musculoskeletal: No back pain. Skin: No rashes. Neurological: No headache. PMHx: History of CVA with right-sided weakness, history of pulmonary embolism on Coumadin, CAD status post stent placement, CHF, COPD, for the last 1 year has been on 2 L nasal cannula 24 hr a day via oxygen concentrator he has at home Soc Hx: Lives independently, no family in the area, a neighbor checks on him frequently, home in adequate condition according to EMS, he stopped driving about 2 or 3 weeks ago because he did not feel comfortable behind the wheel, he desires to return home to his house PHYSICAL General Appearance: Alert, slightly tachypneic Eyes: Pupils equal and round no pallor or injection ENT, Mouth: Mucous membranes moist Respiratory: He is slightly tachypneic, There are no retractions, lungs are clear to auscultation Cardiovascular: Regular rate and rhythm Gastrointestinal: Abdomen is soft and non-tender, no masses, bowel sounds normal Neurological: A&O, moves all extremities Skin: Warm and dry, no rashes Musculoskeletal: Neck is supple non tender Extremities: symmetrical, full range of motion , edema and erythema with some warmth to his right lower extremity Psychiatric: Patient is oriented X 3, there is no agitation Source: Patient, EMS Exam Limitations: No limitations - Personal History Current Tetanus/Diphtheria Vaccine: No Current Tetanus Diphtheria and Acellular Pertussis (TDAP): No Tetanus Vaccine Date: 30+ years ago - Medical/Surgical History Hx Asthma: No Hx Chronic Respiratory Disease: Yes Hx Diabetes: No Hx Cardiac Disease: Yes Hx Renal Disease: No Hx Cirrhosis: No Hx Alcoholism: No Hx HIV/AIDS: No Hx Splenectomy or Spleen Trauma: No Other PMH: PE,HIGH CHOL,PROSATE ISSUES, Stroke with r side weakness - Social History Smoking Status: Never smoked Constitutional: Initial Vital Signs Temperature (C) 36.4 C 06/17/17 22:11 Heart Rate 79 06/17/17 22:11 Respiratory Rate 20 06/17/17 22:11 Blood Pressure 156/91 H 06/17/17 22:11 O2 Sat (%) 93 06/17/17 22:11 O2 Delivery Mode Oxymizer O2 (L/minute) 6 Allergies/Adverse Reactions: No Known Allergies Allergy (Unverified 06/17/17 22:25) Home Medications: Medication Instructions Recorded Herbals/Supplements -Info Only 1 each PO AD 01/11/12 Cyanocobalamin [Vitamin B12 (*)] 1,000 mcg PO DAILY 06/29/16 [place]-3 Fatty Acids [Fish Oil 1000 1,000 mg PO DAILY 06/29/16 mg (*)] Simvastatin [Zocor] 40 mg PO DAILY 06/29/16 Enoxaparin [Lovenox 60 MG (*)] 60 mg SC BID #10 syr 07/02/16 Warfarin Sodium [Coumadin 5MG (*)] 5 mg PO DAILY AT 4PM #30 tab 07/02/16 Medical Decision Making - Diagnostics Imaging Results: Imaging Impressions Chest X-Ray 06/17/17 22:15 Impression: 1. Chronic bronchitis/airways disease. 2. Suspect right lower lobe pneumonia. Findings and recommendations discussed with Emergency Department physician, Keely Domínguez MD at 22:42 hour, 06/17/2017. Final report concurs with initial preliminary interpretation. Chest/Thorax CTA 06/17/17 22:45 Impression: 1. Multilevel moderate to high volume bilateral diffuse pulmonary thromboemboli worse in the right main pulmonary artery and right lower lobe but similar distribution to the June 2016 study either representing recurrent acute pulmonary thromboemboli or residual chronic pulmonary thromboemboli. 2. Suspect pulmonary infarct in the right lower lobe. 3. Reticular nodular densities throughout both lungs asymmetrically more prominent in the right lower lobe and right upper lobe appears similar to previous study. 4. No pleural effusion or pneumothorax. 5. Atherosclerotic aorta with extensive coronary artery calcifications. Findings and recommendations discussed with Emergency Department physician, Keely Domínguez MD at 23:30 hour, 06/17/2017. Final report concurs with initial preliminary interpretation. A test result has been communicated to a licensed care provider and documented in the [facility] [employer] Critical Result system on 06/17/2017 23:58, Message ID [id number]. Chest x-ray one view shows right lower lobe pneumonitis, discussed with Dr. Flores of Radiology. Imaging: Discussed imaging studies w/ call center nurse Radiologist, I viewed and interpreted images myself Differential Diagnosis: This is an 86-year-old male with worsening hypoxia from his baseline. He has a history of pulmonary embolism on Coumadin, COPD, CHF and any of these could be contributing to his hypoxia. On exam, he is generally well-appearing though requires 10 L via face mask to maintain his oxygen saturations. Differential diagnosis includes pulmonary embolism, CHF exacerbation, COPD in exacerbation, pneumonia, pneumothorax. In the emergency department, patient was given a DuoNeb with some improvement in his symptoms. INR was 1, concerning the patient is not taking his Coumadin. Plan for CT scan of his chest. CT scan of his chest revealed multiple pulmonary emboli which are and same distribution is previous CT scan. I suspect this is the cause of his symptoms. I have given him a dose of Lovenox. I have consulted with the hospitalist who will admit the patient. BNP is elevated, I suspect this is due to cardiac strain from his PE. I have discussed the diagnosis and the treatment plan with the patient. - Data Points Laboratory Results: Laboratory Results 06/17/17 22:27 06/17/17 22:27 06/17/17 06/17/17 06/17/17 22:27 22:27 22:27 WBC 12.88 10^3/uL H 10^3/uL (3.80-9.50) RBC 4.50 10^6/uL 10^6/uL (4.40-6.38) Hgb 12.7 g/dL L g/dL (13.7-17.5) Hct 38.7 % L % (40.0-51.0) MCV 86.0 fL fL (81.5-99.8) MCH 28.2 pg pg (27.9-34.1) MCHC 32.8 g/dL g/dL (32.4-36.7) RDW 15.3 % H % (11.5-15.2) Plt Count 418 10^3/uL H 10^3/uL (150-400) MPV 10.5 fL fL (8.7-11.7) Neut % (Auto) 67.2 % % (39.3-74.2) Lymph % (Auto) 17.9 % % (15.0-45.0) [place] % (Auto) 11.6 % % (4.5-13.0) Eos % (Auto) 1.2 % % (0.6-7.6) Baso % (Auto) 0.5 % % (0.3-1.7) Nucleat RBC Rel Count 0.0 % % (0.0-0.2) Absolute Neuts (auto) 8.67 10^3/uL H 10^3/uL (1.70-6.50) Absolute Lymphs (auto) 2.30 10^3/uL 10^3/uL (1.00-3.00) Absolute Monos (auto) 1.49 10^3/uL H 10^3/uL (0.30-0.80) Absolute Eos (auto) 0.16 10^3/uL 10^3/uL (0.03-0.40) Absolute Basos (auto) 0.06 10^3/uL 10^3/uL (0.02-0.10) Absolute Nucleated RBC 0.00 10^3/uL 10^3/uL (0-0.01) Immature Gran % 1.6 % H % (0.0-1.1) Immature Gran # 0.20 10^3/uL H 10^3/uL (0.00-0.10) PT 13.9 SEC SEC (12.0-15.0) INR 1.05 (0.83-1.16) D-Dimer 9.83 ug/mLFEU H ug/mLFEU (0.00-0.50) Sodium 142 mEq/L mEq/L (135-145) Potassium 4.5 mEq/L mEq/L (3.5-5.2) Chloride 106 mEq/L mEq/L (97-110) Carbon Dioxide 24 mEq/l mEq/l (22-31) Anion Gap 12 mEq/L mEq/L (8-16) BUN 34 mg/dL H mg/dL (7-23) Creatinine 1.0 mg/dL mg/dL (0.7-1.3) Estimated GFR > 60 Glucose 115 mg/dL H mg/dL (70-100) Calcium 9.4 mg/dL mg/dL (8.5-10.4) Total Bilirubin 0.5 mg/dL mg/dL (0.1-1.4) Conjugated Bilirubin 0.3 mg/dL mg/dL (0.0-0.5) Unconjugated Bilirubin 0.2 mg/dL mg/dL (0.0-1.1) AST 27 IU/L IU/L (17-59) ALT 32 IU/L IU/L (21-72) Alkaline Phosphatase 83 IU/L IU/L (38-126) Troponin I 0.018 ng/mL ng/mL (0.000-0.034) NT-Pro-B Natriuret Pep 888 pg/mL H pg/mL (0-450) Total Protein 6.8 g/dL g/dL (6.3-8.2) Albumin 3.5 g/dL g/dL (3.5-5.0) Medications Given: Discontinued Medications Albuterol/Ipratropium (Duoneb) 3 ml IH EDNOW ONE Stop: 06/17/17 22:16 Last Admin: 06/17/17 22:40 Dose: 3 ml Enoxaparin Sodium (Lovenox) 70 mg SC EDNOW ONE Stop: 06/17/17 23:42 Last Admin: 06/18/17 00:13 Dose: 70 mg Departure - Departure Disposition: [facility] Acute Clinical Impression: Hypoxia Pulmonary embolism Qualifiers: Pulmonary embolism type: other Chronicity: acute Acute cor pulmonale presence: without acute cor pulmonale Qualified Code(s): I26.99 - Other pulmonary embolism without acute cor pulmonale Condition: Fair
[2017-06-17 22:47] LABS: INR 1.05 (0.83-1.16); PROTIME(PATIENT) 13.9 SEC (12.0-15.0)
[2017-06-17] MEDS ORDERED: IOPAMIDOL (ISOVUE 370) 100 ML BTL IV ONE (23:02)
--- NOTE | 2017-06-17 23:13 | CPEKG ---
Heart Rate: 75 RR Interval: 800 P-R Interval: 180 QRSD Interval: 106 QT Interval: 404 QTC Interval: 452 P [place]: 40 QRS [place]: -49 T Wave [place]: 103 EKG Severity - ABNORMAL ECG - EKG Impression: SINUS RHYTHM EKG Impression: LEFT ANTERIOR FASCICULAR BLOCK EKG Impression: ABNRM R PROG, CONSIDER ASMI OR LEAD PLACEMENT EKG Impression: NONSPECIFIC T ABNORMALITIES, LATERAL LEADS Electronically Signed By: Keely Domínguez 18-Jun-2017 05:29:28
[2017-06-17] MEDS ORDERED: ENOXAPARIN 80 MG/0.8 ML SYR SC ONE (23:41)
--- NOTE | 2017-06-18 00:18 | PDGENHP ---
History and Physical - Chief Complaint Hypoxia - History of Present Illness 86 yo M w/ hx of multiple PEs, CAD, and prostate CA presents with hypoxia. Patient has a pulse ox at home and noted that his O2 level has been low over the last 2-3 days despite wearing his usual 2 L/min O2 around the clock. Today he noted his sats were in the 70s so he had a neighbor bring him to the ED. He has also noticed some increased COLON but otherwise denies symptoms such as chest pain, cough, or fever. Upon arrival in the ED, CTPE revealed acute on chronic PE and a subtherapeutic INR. Patient self lowered the dose of his warfarin and has not been getting his INR checked. He was here in 2017 with almost an identical presentation. History Information - Allergies/Home Medication List Allergies/Adverse Reactions: No Known Allergies Allergy (Unverified 06/17/17 22:25) Home Medications: Herbals/Supplements -Info Only 1 each PO AD 01/11/12 [Last Taken Unknown] Cyanocobalamin [Vitamin B12 (*)] 1,000 mcg PO DAILY 06/29/16 [Last Taken Unknown ] [place]-3 Fatty Acids [Fish Oil 1000 mg (*)] 1,000 mg PO DAILY 06/29/16 [Last Taken Unknown] Simvastatin [Zocor] 40 mg PO DAILY 06/29/16 [Last Taken 06/27/16] I have personally reviewed and updated: family history, medical history - Past Medical History coronary artery disease, cancer, pulmonary embolism - Surgical History Additional surgical history: Tonsillectomy - Family History Positive for: cancer - Social History Smoking Status: Never smoked Review of Systems Review of Systems: ROS: 10pt was reviewed & negative except for what was stated in HPI & below Physical Exam Physical Exam: Temp Pulse Resp BP Pulse Ox 36.4 C 81 18 139/72 H 94 06/17/17 22:11 06/18/17 00:12 06/18/17 00:12 06/18/17 00:12 06/18/17 00:12 O2 (L/minute) 4 Constitutional: no apparent distress, not in pain Eyes: PERRL, EOMI Ears, Nose, Mouth, Throat: moist mucous membranes, no oral mucosal ulcers Cardiovascular: regular rate and rhythym, systolic murmur, edema (Trace b/l YESENIA) Respiratory: no respiratory distress, clear to auscultation Gastrointestinal: normoactive bowel sounds, soft, non-tender abdomen Skin: warm, normal color Musculoskeletal: full muscle strength, no muscle tenderness Neurologic: CN II-XII Intact, other (A&Ox2) Psychiatric: interacting appropriately, not anxious Lab Data & Imaging Review 06/17/17 22:27 06/17/17 22:27 WBC 12.88 10^3/uL (3.80-9.50) H 06/17/17 22: RBC 4.50 10^6/uL (4.40-6.38) 06/17/17 22: Hgb 12.7 g/dL (13.7-17.5) L 06/17/17 22: Hct 38.7 % (40.0-51.0) L 06/17/17 22: MCV 86.0 fL (81.5-99.8) 06/17/17 22: MCH 28.2 pg (27.9-34.1) 06/17/17 22: MCHC 32.8 g/dL (32.4-36.7) 06/17/17 22: RDW 15.3 % (11.5-15.2) H 06/17/17 22: Plt Count 418 10^3/uL (150-400) H 06/17/17 22: MPV 10.5 fL (8.7-11.7) 06/17/17 22: Neut % (Auto) 67.2 % (39.3-74.2) 06/17/17 22: Lymph % (Auto) 17.9 % (15.0-45.0) 06/17/17 22: [place] % (Auto) 11.6 % (4.5-13.0) 06/17/17 22: Eos % (Auto) 1.2 % (0.6-7.6) 06/17/17 22: Baso % (Auto) 0.5 % (0.3-1.7) 06/17/17 22: Nucleat RBC Rel Count 0.0 % (0.0-0.2) 06/17/17 22: Absolute Neuts (auto) 8.67 10^3/uL (1.70-6.50) H 06/17/17 22:27 Absolute Lymphs (auto) 2.30 10^3/uL (1.00-3.00) 06/17/17 22: Absolute Monos (auto) 1.49 10^3/uL (0.30-0.80) H 06/17/17 22:27 Absolute Eos (auto) 0.16 10^3/uL (0.03-0.40) 06/17/17 22: Absolute Basos (auto) 0.06 10^3/uL (0.02-0.10) 06/17/17 22: Absolute Nucleated RBC 0.00 10^3/uL (0-0.01) 06/17/17 22: Immature Gran % 1.6 % (0.0-1.1) H 06/17/17 22: Immature Gran # 0.20 10^3/uL (0.00-0.10) H 06/17/17 22:27 PT 13.9 SEC (12.0-15.0) 06/17/17: INR 1.05 (0.83-1.16) 06/17/17 22: D-Dimer 9.83 ug/mLFEU (0.00-0.50) H 06/17/17 22:27 Sodium 142 mEq/L (135-145) 06/17/17 22: Potassium 4.5 mEq/L (3.5-5.2) 06/17/17 22:27 Chloride 106 mEq/L (97-110) 06/17/17 22: Carbon Dioxide 24 mEq/l (22-31) 06/17/17 22: Anion Gap 12 mEq/L (8-16) 06/17/17 22:27 BUN 34 mg/dL (7-23) H 06/17/17 22:27 Creatinine 1.0 mg/dL (0.7-1.3) 06/17/17 22: Estimated GFR > 60 06/17/17 22: Glucose 115 mg/dL (70-100) H 06/17/17 22:27 Calcium 9.4 mg/dL (8.5-10.4) 06/17/17 22:27 Total Bilirubin 0.5 mg/dL (0.1-1.4) 06/17/17 22:27 Conjugated Bilirubin 0.3 mg/dL (0.0-0.5) 06/17/17 22:27 Unconjugated Bilirubin 0.2 mg/dL (0.0-1.1) 06/17/17 22:27 AST 27 IU/L (17-59) 06/17/17 22:27 ALT 32 IU/L (21-72) 06/17/17 22:27 Alkaline Phosphatase 83 IU/L (38-126) 06/17/17 22:27 Troponin I 0.018 ng/mL (0.000-0.034) 06/17/17 22:27 NT-Pro-B Natriuret Pep 888 pg/mL (0-450) H 06/17/17 22:27 Total Protein 6.8 g/dL (6.3-8.2) 06/17/17 22:27 Albumin 3.5 g/dL (3.5-5.0) 06/17/17 22:27 Imaging Review: Imaging Impressions Chest X-Ray 06/17/17 22:15 Impression: 1. Chronic bronchitis/airways disease. 2. Suspect right lower lobe pneumonia. Findings and recommendations discussed with Emergency Department physician, Keely Domínguez MD at 22:42 hour, 06/17/2017. Final report concurs with initial preliminary interpretation. Chest/Thorax CTA 06/17/17 22:45 Impression: 1. Multilevel moderate to high volume bilateral diffuse pulmonary thromboemboli worse in the right main pulmonary artery and right lower lobe but similar distribution to the June 2016 study either representing recurrent acute pulmonary thromboemboli or residual chronic pulmonary thromboemboli. 2. Suspect pulmonary infarct in the right lower lobe. 3. Reticular nodular densities throughout both lungs asymmetrically more prominent in the right lower lobe and right upper lobe appears similar to previous study. 4. No pleural effusion or pneumothorax. 5. Atherosclerotic aorta with extensive coronary artery calcifications. Findings and recommendations discussed with Emergency Department physician, Keely Domínguez MD at 23:30 hour, 06/17/2017. Final report concurs with initial preliminary interpretation. A test result has been communicated to a licensed care provider and documented in the [facility] Critical Result system on 06/17/2017 23:58, Message ID [id number]. Visualized and Interpreted EKG results: Yes EKG Interpretation: Positive for: normal sinsus rhythm, other (LAFB, poor R wave progression, T wave flattening lateral leads) Assessment & Plan Assessment: 86 yo M w/ hx of PEs presents with recurrent PEs in setting of subtherapeutic INR. Plan: 1. Acute on chronic pulmonary emboli - Multilevel moderate to high volume bilateral diffuse pulmonary thromboemboli worse in the right main pulmonary artery and right lower lobe but similar distribution to the June 2016 study either representing recurrent acute pulmonary thromboemboli or residual chronic pulmonary thromboemboli. Patient on warfarin but INR 1.05 in the ED. He lives alone and I suspect has very poor compliance with medication. Troponin negative ; BNP modestly elevated at 888 but this is lower than previous values. - Lovenox 1 mg/kg q12h - Consider change to DOAC noting patient rarely gets INR checked 2. Acute on chronic HRF - Acute component 2/2 above; now stable on 4 L/min O2 and usually wears 2 L/min continuously. - Wean O2 as able 3. CAD - With prior history of stenting, now only takes statin at home. No chest pain currently, troponin negative. 4. Hx of prostate CA - Patient denies currently being on treatment. Diet - Regular Code - DNR per discussion with patient Ppx - LMWH Dispo - Admit under inpatient status as I suspect patient will require longer than 2 MN stay noting he lives alone.
[2017-06-18] MEDS ORDERED: ALBUTEROL 3 ML DEYVIAL IH PRN (00:25)
[2017-06-18] MEDS ORDERED: ACETAMINOPHEN 325 MG TAB PO PRN (00:25)
[2017-06-18] MEDS ORDERED: ONDANSETRON DISINTEGRATING 4 MG TAB PO PRN (00:25)
[2017-06-18] MEDS ORDERED: ONDANSETRON 4 MG/2 ML VIAL IVP PRN (00:25)
[2017-06-18 05:15] LABS: PLATELET COUNT 409 10^3/uL (150-400)
--- NOTE | 2017-06-18 08:13 | PDMN ---
Medical Necessity Medical necessity: est los>2mn for acute on chronic PE, bilateral moderate to high volume, with INR 1.05 on Coumadin, and acute on chronic hypoxic resp failure with increased O2 needs above baseline; admit for Lovenox, consider change to DOAC, wean O2; comorbid CAD, advanced age, lives alone, poor complicance w/meds and INR's, hx prostate CA; per order and H&P 06/18/17
[2017-06-18] MEDS: ENOXAPARIN 80 MG/0.8 ML SYR SC SCH ×2 (08:56→20:36)
--- NOTE | 2017-06-18 10:07 | HOSPPROG ---
Hospitalist Progress Note Assessment/Plan: Mr. Adams is an 86-year-old male with a history of multiple PEs, coronary artery disease, and and prostate cancer. He presented the emergency room with hypoxemia. He noted his oxygen levels were in the 70 so neighbor brought him to the emergency room. It was noted that he had a subtherapeutic INR. He is not good at getting his INR checked. Will discuss with the patient and family about changing him to another oral anticoagulant that does not need close monitoring * acute hypoxemia -secondary to multiple pulmonary emboli * acute on chronic pulmonary emboli -CTA shows multilevel moderate to high volume bilateral diffuse pulmonary thromboemboli worse in the right main pulmonary artery and right lower lobe but a similar distribution noted to the June 2016 study -on treatment dose of Lovenox * leukocytosis * acute on chronic heart failure -had an echo in 2017 -concerned he has worsening heart failure today -will get an echo today -CTA shows likely a pulmonary infarct * coronary artery disease * history of prostate cancer *plan: when I spoke rodolfo Romeor, he self doses his Coumadin (said he had some blood in his stool and will hold it for a few days and then resume), He lives in [place] and doesn't get INR checked regularly. Could consider Xarelto bid x 21 days, then 20 mg daily for compliance, or could do lovenox 100 mg once daily. Will get a cognitive evaluation prior to making any changes to be sure he understands how to take his medications. Attempted to call nearest kin, but no one listed. Subjective: Nick has no complaints except for shortness of breath. Objective: Vital Signs Temp Pulse Resp BP Pulse Ox 36.7 C 73 18 102/51 L 92 06/18/17 07:54 06/18/17 09:50 06/18/17 09:50 06/18/17 07:54 06/18/17 09:50 Laboratory Results 06/18/17 05:03 06/18/17 05:03 06/17/17 06/18/17 06/19/17 05:59 05:59 05:59 Intake Total 200 Output Total 600 Balance -400 PT 13.9 SEC (12.0-15.0) 06/17/17 22:27 INR 1.05 (0.83-1.16) 06/17/17 22:27 - Physical Exam Constitutional: chronically ill appearing, uncomfortable Eyes: PERRL Ears, Nose, Mouth, Throat: hearing normal Cardiovascular: regular rate and rhythym Respiratory: reduced air movement, No no respiratory distress (increase wob w talking) Gastrointestinal: normoactive bowel sounds Skin: warm Musculoskeletal: generalized weakness Neurologic: AAOx3 Psychiatric: interacting appropriately ICD10 Worksheet Patient Problems: Problems Problem Status Onset CAD - Coronary arteriosclerosis Active Pulmonary embolism Active Chronic obstructive pulmonary disease with acute exacerbation Acute Acute exacerbation of congestive heart failure Acute Chronic hypoxemic respiratory failure Acute Elevated troponin I level Acute Pulmonary embolism Acute Elevated troponin Acute Palliative care encounter Acute Hypoxia Acute
--- NOTE | 2017-06-18 14:43 | ASMTCMCOM ---
CM Note CM Note Notes: Pt in for PE, has a history of multiple PEs. Pt has numerous co-morbidities including CAD, CHF, COPD. Pt resides alone in [place] and has supportive neighbors Pt reports he is not taking Coumadin as prescribed. PT/OT/F[employer]ANER evals pending. Chart review indicates pt has had At Home home care in past and been to [facility]. CM to follow. Date Signed: 06/18/2017 02:42 PM Electronically Signed By:RONNIE Larios
--- NOTE | 2017-06-18 15:06 | ECHO ---
[email or web address] [address] [address] Main: [phone] Fax: Transthoracic Echocardiogram Name: BILL WEST MR#: [id number] Study Date: 06/18/2017 Study Time: 12:02 PM Date of : 1930 Age: 86 year(s) Height: 172.7 cm (68 in.) Weight: 68.49 kg (151 lb.) BSA: 1.81 m2 Gender: Male Examination: Echo Indication: Increased O2 needs, multiple PE's Image Quality: Contrast: Requested by: Daniela Carbajal BP: 102 mmHg/51 mmHg Heart Rate: Rhythm: Indication: Increased O2 needs, multiple PE's Procedure Staff Title Insurance Examiner: Jey Hyde RDCS Reading Physician: Matteo Hernandez MD Requesting Provider: Conclusions: Normal size left ventricle. Low normal left ventricular systolic function. EF is 54 %. Distal anterior septum is bright and hypokinetic consistent with old [place].. Normal size right ventricle. The mitral valve is normal in appearance and function. Trivial mitral valve regurgitation. The aortic valve is tri-leaflet. There is no significant aortic valve regurgitation. The pulmonary artery pressure could not be adequately estimated. No old studies for comparison. Measurements: Chambers Valvular Assessment AV/MV Valvular Assessment TV/PV Normal Normal Normal Name Value Range Name Value Range Name Value Range Ao Tess (MM): 2.9 cm (2.2 cm-3.7 AV Vmax: 1.49 m/s (1 m/s-1.7 TR Vmax: 3.12 mm/s ( - ) cm) m/s) TR PGmax: 39 mmHg ( - ) IVSd (2D): 0.8 cm (0.6 cm-1.1 AV maxP mmHg ( - ) syst. PAP: 44 mmHg ( - ) cm) LVOT Vmax: 1.12 m/s (0.7 m/s-1.1 PV Vmax: 1.38 m/s (0.6 m/s-0.9 LVDd (2D): 4.1 cm (4.2 cm-5.9 m/s) m/s) cm) MV E Vmax: 0.74 m/s ( - ) PV PGmax: 8 mmHg ( - ) LVDs (2D): 3.0 cm (2.1 cm-4 MV A Vmax: 1.03 m/s ( - ) cm) MV E/A: 0.72 ( - ) LVPWd (2D): 0.9 cm (0.6 cm-1 cm) LVEF (BP): 54 % (>=55 %) Continued Measurements: Chambers Valvular Assessment AV/MV Valvular Assessment TV/PV Patient: BILL WEST Study Date: 06/18/2017 Page 1 of 2 12:02 PM Name Value Name Value Name Value LADs Lon.3 cm MV E' Septal: 0.04 m/s CVP (est.): 5 mmHg LA Area: 19.5 cm2 MV E/E' Septal: 19.60 LA Volume: 64 ml MV E/E' Lateral: 14.70 LA Volume Index: 35.4 ml/m2 Findings: Left Ventricle: Normal size left ventricle. No LV hypertrophy. Low normal left ventricular systolic function. EF is 54 %. Normal diastolic LV function. Distal anterior septum is bright and hypokinetic consistent with old [place] Right Ventricle: Normal size right ventricle. Left Atrium: The left atrium is mildly dilated. Right Atrium: The right atrium is normal in size. Mitral Valve: The mitral valve is normal in appearance and function. Trivial mitral valve regurgitation. Aortic Valve: The aortic valve is tri-leaflet. There is no significant aortic valve regurgitation. Tricuspid Valve: There is minimal tricuspid regurgitation so analysis of pulmonary hypertension is inadequate. There was previously moderate tricuspid regurgitation with a RVSP 73 mmHg from 06/28/16.. Pulmonic Valve: The pulmonic valve is normal in appearance and function. Aorta: The aorta is normal. Pericardium: No pericardial effusion. (No Signature Object) Patient: BILL WEST Study Date: 06/18/2017 Page 2 of 2 12:02 PM [id number]
[2017-06-19] MEDS ORDERED: FUROSEMIDE 20 MG/2 ML VIAL IVP ONE (08:03)
[2017-06-19] MEDS ORDERED: [UNRECOGNIZED DRUG - REMARK] PO SCH (09:00)
[2017-06-19] MEDS ORDERED: ATORVASTATIN CALCIUM 20 MG TAB PO SCH (09:00)
[2017-06-19] MEDS ORDERED: [UNRECOGNIZED DRUG - REMARK] PO SCH (09:00)
[2017-06-19] MEDS ORDERED: NON-FORMULARY NEW DRUG (Simvastatin [Zocor] 40 MG) PO SCH (09:00)
[2017-06-19] MEDS: ENOXAPARIN 80 MG/0.8 ML SYR SC SCH (09:05)
[2017-06-19] MEDS: OMEGA-3 FATTY ACIDS 1,000 MG CAP PO SCH (09:05)
[2017-06-19] MEDS: ATORVASTATIN CALCIUM 20 MG TAB PO SCH (09:05)
--- NOTE | 2017-06-19 12:10 | HOSPPROG ---
Hospitalist Progress Note Assessment/Plan: Mr. Adams is an 86-year-old male with a history of multiple PEs, coronary artery disease, and and prostate cancer. He presented the emergency room with hypoxemia. He noted his oxygen levels were in the 70 so neighbor brought him to the emergency room. It was noted that he had a subtherapeutic INR. He is not good at getting his INR checked. 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 Unlikely to take Coumadin regularly and get the INR checked. will initiate Xarelto bid x 21 days, then daily. *likely CAP -will get a chest xray -check blood cultures, respiratory PCR, start treatment w abx * leukocytosis * acute on chronic heart failure -CTA shows likely a pulmonary infarct * coronary artery disease * history of prostate cancer *plan: get a chest x ray, start treatment w Xarelto, treat for pneumonia until I get results of xrays, labs. Subjective: Nick says he is feeling poorly today, says he feels "ill" Objective: Vital Signs Temp Pulse Resp BP Pulse Ox 37.3 C 91 18 134/67 H 83 L 06/19/17 08:18 06/19/17 08:18 06/19/17 08:18 06/19/17 08:18 06/19/17 09:35 Laboratory Results 06/18/17 05:03 06/18/17 05:03 06/18/17 06/19/17 06/20/17 05:59 05:59 05:59 Intake Total 200 0 350 Output Total 600 450 975 Balance -400 -450 -625 PT 13.9 SEC (12.0-15.0) 06/17/17 22:27 INR 1.05 (0.83-1.16) 06/17/17 22:27 - Physical Exam Constitutional: appears nourished, chronically ill appearing Eyes: PERRL Ears, Nose, Mouth, Throat: hearing normal Cardiovascular: regular rate and rhythym Respiratory: no respiratory distress, reduced air movement (mid lobes down) Gastrointestinal: normoactive bowel sounds Skin: warm Musculoskeletal: generalized weakness Neurologic: AAOx3 Psychiatric: interacting appropriately ICD10 Worksheet Patient Problems: Problems Problem Status Onset Hypoxia Acute Pulmonary embolism Acute CAD - Coronary arteriosclerosis Active Pulmonary embolism Active Acute exacerbation of congestive heart failure Acute Chronic hypoxemic respiratory failure Acute Chronic obstructive pulmonary disease with acute exacerbation Acute Elevated troponin Acute Elevated troponin I level Acute Palliative care encounter Acute
--- NOTE | 2017-06-19 13:15 | ASMTCMCOM ---
CM Note CM Note Notes: CM spoke w/ Chely, RN regarding d/c POC. CM met w/ pt for dispo planning. PT is recommending SNF. Pt reports that he would like to see how he progresses. Pt reports that if he had to pick a facility he would like to go back to [facility]. Pt does not mind having CM sending a referral to [facility]. CM completed non triggering PASRR. CM to follow. Plan: TBD Date Signed: 06/19/2017 01:14 PM Electronically Signed By:NNEKA Abdi
[2017-06-19] MEDS: DOXYCYCLINE INJ 100 MG in NS 250 ML IV SCH ×2 (13:38→21:48)
[2017-06-19] MEDS: RIVAROXABAN 15 MG TAB PO SCH (17:47)
[2017-06-20] MEDS: [UNRECOGNIZED DRUG - REMARK] PO SCH (05:49)
[2017-06-20] MEDS: DOXYCYCLINE INJ 100 MG in NS 250 ML IV SCH (08:40)
[2017-06-20] MEDS: ATORVASTATIN CALCIUM 20 MG TAB PO SCH (08:40)
[2017-06-20] MEDS: OMEGA-3 FATTY ACIDS 1,000 MG CAP PO SCH (08:40)
[2017-06-20] MEDS: RIVAROXABAN 15 MG TAB PO SCH ×2 (08:40→17:51)
--- NOTE | 2017-06-20 11:23 | HOSPPROG ---
Hospitalist Progress Note Assessment/Plan: Mr. Adams is an 86-year-old male with a history of multiple PEs, coronary artery disease, and and prostate cancer. He presented the emergency room with hypoxemia. He noted his oxygen levels were in the 70 so neighbor brought him to the emergency room. It was noted that he had a subtherapeutic INR. He is not good at getting his INR checked. * acute hypoxemia -secondary to multiple pulmonary emboli -concern for pneumonia (procalcitonin is low, resp PCR is negative, will dc abx) * acute on chronic pulmonary emboli -CTA shows multilevel moderate to high volume bilateral diffuse pulmonary thromboemboli worse in the right main pulmonary artery and right lower lobe -started on Xarelto bid for 21 days, then will be daily -patient lives alone in the [facility] and has no family, was not compliant with using Coumadin and getting INR monitored * leukocytosis * acute on chronic heart failure -CTA shows likely a pulmonary infarct * coronary artery disease * history of prostate cancer *plan: patient is upset and wants to return home, says it's ok if he dies, will ask ST to do a cognitive evaluation. He doesn't remember me from the last 2 days. [place] can go [place]. Have asked CM to see if he has any family close by, the patient says he has no family. Subjective: Nick wants to go home, when told him he could go to rehab, he was thinking about it. Has no complaints, except being short of breath Objective: Vital Signs Temp Pulse Resp BP Pulse Ox 36.6 C 70 16 117/59 L 89 L 06/20/17 07:51 06/20/17 07:51 06/20/17 07:51 06/20/17 07:51 06/20/17 07:51 Microbiology 06/19/17 11:55 Respiratory Panel (PCR) - Final Nasal, Sinus - [place] Viral Transport No Organism Detected Laboratory Results 06/18/17 05:03 06/18/17 05:03 06/19/17 06/20/17 06/21/17 05:59 05:59 05:59 Intake Total 0 1125 Output Total 450 1750 275 Balance -450 -625 -275 PT 13.9 SEC (12.0-15.0) 06/17/17 22:27 INR 1.05 (0.83-1.16) 06/17/17 22:27 - Physical Exam Constitutional: appears nourished, not in pain, chronically ill appearing Eyes: PERRL Ears, Nose, Mouth, Throat: hard of hearing Cardiovascular: regular rate and rhythym Respiratory: no respiratory distress, reduced air movement Skin: warm Musculoskeletal: generalized weakness Psychiatric: interacting appropriately, poor insight, poor judgement, poor memory ICD10 Worksheet Patient Problems: Problems Problem Status Onset Hypoxia Acute Pulmonary embolism Acute CAD - Coronary arteriosclerosis Active Pulmonary embolism Active Acute exacerbation of congestive heart failure Acute Chronic hypoxemic respiratory failure Acute Chronic obstructive pulmonary disease with acute exacerbation Acute Elevated troponin Acute Elevated troponin I level Acute Palliative care encounter Acute
[2017-06-21] MEDS: [UNRECOGNIZED DRUG - REMARK] PO SCH (06:00)
[2017-06-21] MEDS: OMEGA-3 FATTY ACIDS 1,000 MG CAP PO SCH (08:15)
[2017-06-21] MEDS: ATORVASTATIN CALCIUM 20 MG TAB PO SCH (08:16)
[2017-06-21] MEDS: RIVAROXABAN 15 MG TAB PO SCH (08:16)
[2017-06-21 08:35] LABS: PLATELET COUNT 493 10^3/uL (150-400)
--- NOTE | 2017-06-21 12:42 | ASMTCMCOM ---
CM Note CM Note Notes: CM spoke w/pt re dc poc. PT/OT recommend SNF, pt is currently refusing. CM encouraged pt to consider again going to SNF, as he lives alone up [place] [address] and has been deconditioned. Pt reports he liked [facility] but did not feel that the therapy helped at all. CM asked pt to consider what he would do if he fell and ended up worse. Pt states "as long as i'm by a phone I'll be OK" CM expressed to pt that going home alone is not a safe discharge, especially since he was chaging the amount of Coumadin he was taking on his own. CM again encouraged pt to reconsider SNF at least for a short stay and CM will tallk to [facility] about making his therapy more realistic for his lifestyle at home since he states he is not up for big workouts. Pt states " I'm done with that." Pt says he needs to think about it a little more, CM will come back after lunch. DC Plan: TBD Date Signed: 06/21/2017 12:41 PM Electronically Signed By:Josephine Baker RN
[2017-06-21 15:01] VITALS: BP 112/54
--- NOTE | 2017-06-21 15:15 | PDIAF ---
- Diagnosis Diagnosis: PE Code Status: Do Not Resuscitate - Medication Management Discharge Medications: Medications to Continue on Transfer Herbals/Supplements -Info Only 1 each PO AD 01/11/12 [Last Taken Unknown] Cyanocobalamin [Vitamin B12 (*)] 1,000 mcg PO DAILY 06/29/16 [Last Taken ] [place]-3 Fatty Acids [Fish Oil 1000 mg (*)] 1,000 mg PO DAILY 06/29/16 [Last Taken 06/17/17] Simvastatin [Zocor] 40 mg PO DAILY 06/29/16 [Last Taken 06/17/17] Prostate Cancer Medication 1 ea PO DAILY 06/18/17 [Last Taken Unknown] Acetaminophen [Tylenol 325mg (*)] 650 mg PO Q4HRS PRN tab 06/21/17 [Last Taken Unknown] Rivaroxaban [Xarelto 15mg (*)] 15 mg PO BIDMEAL tab 06/21/17 [Last Taken Unknown] Discharge Medications: Refer to the Discharge Home Medication list for PRN reason. PICC Care - Routine: N/A - Orders Services needed: Registered Nurse, Physical Therapy, Occupational Therapy Diet Recommendation: no restrictions on diet - Follow Up Care Current Providers and Referrals: Patient,NotPresent [Unknown] - As per Instructions
--- NOTE | 2017-06-21 15:40 | ASMTLACE ---
LACE Length of stay for Answers: 4-6 days current admission Acuity / Level of Answers: Yes Care: Did the patient have an inpatient admission? Comorbidities - select Answers: Cerebrovascular disease all that apply (CVA, TIA, aneurysms, vasc ular dementia) Chronic pulmonary disease Congestive heart failure Coronary Artery Disease # of Emergency department Answers: 1-2 visits in the last 6 months Social determinants Answers: Lack of community resources and/or lack of social support (no pcp, lives alone, transportation, bob d) Score: 19 Date Signed: 06/21/2017 03:40 PM Electronically Signed By:Josephine Baker RN
--- NOTE | 2017-06-21 15:40 | ASMTCMCOM ---
CM Note CM Note Notes: Spoke again with pt, he agrees to go to [facility]. CM notified Neda at , she will arrange for transportation. DC Plan: SNF/[facility] Date Signed: 06/21/2017 03:39 PM Electronically Signed By:Josephine Baker RN
--- NOTE | 2017-06-21 17:41 | ASDISCHSUM ---
Discharge Information Plan Status:SNF Medically Cleared to Leave: Discharge Date:06/21/2017 05:13 PM D/C Disposition:[facility] ADT D/C Disposition:[facility] Projected Discharge Date:06/21/2017 11:00 AM Transportation at D/C:Wheelchair Van Discharge Delay Reason: Follow-Up Date:06/21/2017 11:00 AM Discharge Slot: Final Diagnosis: Placement Information Referral Type:*Alf/SNF Referral ID:[id number] Provider Name:[facility] Address 1:[address] Address 2: City:[place] Selection Factors: State:[place] Patient Contact Information Contact Name:THELMA Relationship: Address: Home Phone: Work Phone: [facility]:[place] Alternate Phone: [facility]/Zip Code:[place] Email: Financial Information Financial Class:Medicare Primary Plan Desc:MEDICARE INPATIENT Primary Plan Number:[id number] Secondary Plan Desc:HUMANA Secondary Plan Number:[id number] Assessment Information LACE LACE Length of stay for Answers: 4-6 days current admission Acuity / Level of Answers: Yes Care: Did the patient have an inpatient admission? Comorbidities - select Answers: Cerebrovascular disease all that apply (CVA, TIA, aneurysms, vasc ular dementia) Chronic pulmonary disease Congestive heart failure Coronary Artery Disease # of Emergency department Answers: 1-2 visits in the last 6 months Social determinants Answers: Lack of community resources and/or lack of social support (no pcp, lives alone, transportation, bob d) Score: 19 Date Signed: 06/21/2017 03:40 PM Electronically Signed By:Josephine Baker RN [facility] [place] Progress Note CM Note CM Note Notes: Pt in for PE, has a history of multiple PEs. Pt has numerous co-morbidities including CAD, CHF, COPD. Pt resides alone in [place] and has supportive neighbors Pt reports he is not taking Coumadin as prescribed. PT/OT/CLOTH DYER evals pending. Chart review indicates pt has had At Home home care in past and been to [facility] SNF. CM to follow. Date Signed: 06/18/2017 02:42 PM Electronically Signed By:RONNIE Larios [facility] CM Progress Note CM Note CM Note Notes: CM spoke w/ YESSICA Mo regarding d/c POC. CM met w/ pt for dispo planning. PT is recommending SNF. Pt reports that he would like to see how he progresses. Pt reports that if he had to pick a facility he would like to go back to [facility]. Pt does not mind having CM sending a referral to [facility]. CM completed non triggering PASRR. CM to follow. Plan: TBD Date Signed: 06/19/2017 01:14 PM Electronically Signed By:NNEKA Abdi [facility] CM Progress Note CM Note CM Note Notes: CM spoke w/pt re dc poc. PT/OT recommend SNF, pt is currently refusing. CM encouraged pt to consider again going to SNF, as he lives alone up above [place] and has been deconditioned. Pt reports he liked [facility] but did not feel that the therapy helped at all. CM asked pt to consider what he would do if he fell and ended up worse. Pt states "as long as i'm by a phone I'll be OK" CM expressed to pt that going home alone is not a safe discharge, especially since he was chaging the amount of Coumadin he was taking on his own. CM again encouraged pt to reconsider SNF at least for a short stay and CM will tallk to about making his therapy more realistic for his lifestyle at home since he states he is not up for big workouts. Pt states " I'm done with that." Pt says he needs to think about it a little more, CM will come back after lunch. DC Plan: TBD Date Signed: 06/21/2017 12:41 PM Electronically Signed By:Josephine Baker RN [facility] Progress Note CM Note CM Note Notes: Spoke again with pt, he agrees to go to [facility]. [place] notified Neda at , she will arrange for transportation. DC Plan: SNF/[facility] Date Signed: 06/21/2017 03:39 PM Electronically Signed By:Josephine Baker RN Case Management Discharge Plan Note Case Management Discharge Discharge Order Complete? Answers: Yes Patient to Obtain Answers: Other Notes: [facility]ations Transportation Arranged Answers: Other Notes: [facility] will Pick (Date 06/21/2017 05:00 PM & Time) Faxed Final Orders Answers: Yes Agency/Facility Transfer Answers: Yes Report Printed & Faxed to Receiving Agency Family Notified Answers: Yes Discharge Comments Notes: D/w GENERATION MANAGER, final orders faxed. Neda at notified, RN to call report. Date Signed: 06/21/2017 03:44 PM Electronically Signed By:Josephine Baker RN Intervention Information Intervention Type:*IM-Signed Date of Service:06/21/2017 03:57 PM Patient Type:Inpatient Staff Member:Sunita Rod Hours: Discipline: Severity: Comment:
--- NOTE | 2017-06-22 08:59 | GDS ---
[f rep st] DISCHARGE SUMMARY DISCHARGE DIAGNOSES: 1. Acute hypoxemia. 2. 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 3. Leukocytosis. 4. Acute on chronic heart failure. 5. Coronary artery disease. 6. History of prostate cancer. STUDIES AND PROCEDURES DONE: CT angio. PHYSICAL EXAM: GENERAL: The patient is alert. VITAL SIGNS: Afebrile at 36.4, pulse is 67, respira tory rate is 18, blood pressure is 112/54, he is saturating 90% on 5 L. I have seen and evaluated the patient on the day of discharge. HOSPITAL COURSE: 1. The patient is a 86-year-old male who presented to the emergency room with hypoxemia. He was deandre luated and diagnosed with acute hypoxemia that is in the setting of multiple pulmonary emboli and is likely a component of chronic hypoxemia. He has responded well to respiratory therapy and oxygenatio n. 2. 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 CT angio shows multilevel moderate to high volume bilateral p ulmonary emboli. The patient has been started on Xarelto. He has been noncompliant with Coumadin in the past and is unlikely to be compliant again in the future. He will continue Xarelto in the outpa tient setting. 3. Leukocytosis secondary to acute response. 4. Acute on chronic heart failure. He notes to have likely a pulmonary infarct, but is stable. 5. History of prostate cancer. 6. Disposition. The patient will be discharged to [facility] for further rehabilitation and managem ent. There are no pending studies. DISCHARGE MEDICATIONS: Please refer to EMR form. The patient's new medications include Xarelto and Tylenol. His Coumadin has been discontinued as he was noncompliant. FOLLOWUP: Followup will be with his primary care physician. TIME SPENT WITH PATIENT: I spent greater than 35 minutes in the care, coordination, and management o f the patient's disposition. /[id number]/MODL
--- NOTE | 2017-06-26 09:10 | PQFORM ---
PHYSICIAN QUERY FORM Needs Your Response This query form is being sent to you to assure this patient record is coded properly. Please respond to the question below: MARGIN CLERK QUESTION: Dr Blankenship Discharge Summary notes Acute on Chronic CHF. Can patients CHF be further described as either ___ Systolic ___ Diastolic ___ Both Systolic/Diastolic ___ Unable to determine ___ Other (Please specify ) Thank You Larisa TORRES Drum Drier INSTRUCTIONS FOR RESPONSE: Answer question by clicking on the "Edit Document" button. Move cursor to area below the stars. When complete, hit "Save." Click on the "Sign" button, then click "Sign" again. Type in your PIN and hit "Enter." Right Side CHF MTDD
--- NOTE | 2017-06-26 09:14 | PQFORM ---
PHYSICIAN QUERY FORM Needs Your Response This query form is being sent to you to assure this patient record is coded properly. Please respond to the question below: COMPUTATIONAL LINGUIST QUESTION: Dr Blankenship Hypoxemia was noted on the Discharge Summary while chart documentation mentions both hypoxia as well A/C hypoxic respiratory failure. Which diagnosis best describes the patients condition? ___ Hypoxemia ___ A/C Hypoxic Respiratory Failure ___ Other (Please specify ) ___ Unable to determine Thank You Larisa TORRES Home Sales Service Professional INSTRUCTIONS FOR RESPONSE: Answer question by clicking on the "Edit Document" button. Move cursor to area below the stars. When complete, hit "Save." Click on the "Sign" button, then click "Sign" again. Type in your PIN and hit "Enter." Would not change the diagnoses listed by [facility]cy TORRES
== END 2017-06-21 17:13 | DRG 176 ==
LOC: EDUNIT# → F3N 06-18 00:30 → F3E 06-18 14:59
PROVIDERS: ADMIT Student in an Organized Health Care Education/Training Program; ATTEND Student in an Organized Health Care Education/Training Program
DX: I26.99 Other pulmonary embolism without acute cor pulmonale (principal); I50.811 Acute right heart failure; R09.02 Hypoxemia; I25.10 Atherosclerotic heart disease of native coronary artery without angina pectoris; J44.9 Chronic obstructive pulmonary disease, unspecified; R79.1 Abnormal coagulation profile; Z91.128 Patient's intentional underdosing of medication regimen for other reason; T45.516A Underdosing of anticoagulants, initial encounter; I69.351 Hemiplegia and hemiparesis following cerebral infarction affecting right dominant side; Z85.46 Personal history of malignant neoplasm of prostate; Z99.81 Dependence on supplemental oxygen; Z86.711 Personal history of pulmonary embolism; Z79.01 Long term (current) use of anticoagulants; Z95.5 Presence of coronary angioplasty implant and graft
CPT/HCPCS: 87449-90; 92523-GN; 97162-GP; 97166-GO; 97535-GO; G8978-GP-CK; G8979-GP-CI; G8986-GP-CJ; G8987-GO-CI; G9168-GO-CI; G9169-GN-CI; G9170-GN-CI; J0696; J1650; J1940; J7613; Q9967

== ENCOUNTER 2018-04-30 12:06 | Inpatient (IN) | payer OTHER ==
[2018-04-30 12:41] LABS: PLATELET COUNT 537 10^3/uL (150-400)
--- NOTE | 2018-04-30 13:24 | EDPHY ---
H & P Stated Complaint: increasing resp issues sob Time Seen by Provider: 04/30/18 12:31 HPI/ROS: CHIEF COMPLAINT: Shortness of breath HISTORY OF PRESENT ILLNESS: 87-year-old male with chronic oxygen dependent respiratory failure, prior CVA and PE on Xarelto presents with shortness of breath. He is usually on oxygen 5 L by nasal cannula. Onset of gradually increasing and moderate shortness of breath 2 days ago. Now short of breath with minimal exertion. Alleviated by rest. No chest discomfort, cough, fever or respiratory symptoms. No leg swelling, orthopnea, PND. REVIEW OF SYSTEMS: complete 10 point ROS reviewed and is negative except for the noted elements in the HPI - Personal History Current Tetanus Diphtheria and Acellular Pertussis (TDAP): Yes Tetanus Vaccine Date: 30+ years ago - Medical/Surgical History Hx Asthma: No Hx Chronic Respiratory Disease: Yes Hx Diabetes: No Hx Cardiac Disease: Yes Hx Renal Disease: No Hx Cirrhosis: No Hx Alcoholism: No Hx HIV/AIDS: No Hx Splenectomy or Spleen Trauma: No Other PMH: PE,HIGH CHOL, CVA, RUE weakness - Social History Smoking Status: Never smoked Alcohol Use: Sober Drug Use: None - Physical Exam Exam: General Appearance: Alert, pleasant and talkative Eyes: Pupils equal and round, no conjunctival pallor or injection ENT, Mouth: Mucous membranes moist Neck: Normal inspection Respiratory: mild tachypnea, rales at the bases Cardiovascular: Regular rate and rhythm Gastrointestinal: Abdomen is soft and nontender Neurological: A&O, CN grossly intact, mild RUE weakness Skin: Warm and dry Extremities: normal inspection Psychiatric: Mood and affect normal Constitutional: Initial Vital Signs Temperature (C) 36.3 C 04/30/18 12:10 Heart Rate 62 04/30/18 12:10 Respiratory Rate 18 04/30/18 12:10 Blood Pressure 118/48 L 04/30/18 12:10 O2 Sat (%) 75 L 04/30/18 12:10 O2 Delivery Mode Oxymask O2 (L/minute) 5 Allergies/Adverse Reactions: No Known Allergies Allergy (Verified 04/30/18 12:10) Home Medications: Medication Instructions Recorded Cyanocobalamin [Vitamin B12 (*)] 1,000 mcg PO DAILY 06/29/16 [place]-3 Fatty Acids [Fish Oil 1000 1,000 mg PO DAILY 06/29/16 mg (*)] Simvastatin [Zocor] 40 mg PO DAILY 06/29/16 Herbals/Supplements -Info Only 1 ea PO DAILY #0 06/18/17 Fluticasone Nasal [Flonase Nasal 1 sprays NASAL DAILY 04/30/18 [place]] Rivaroxaban [Xarelto] 10 mg PO SUTUTHSA 04/30/18 Rivaroxaban [Xarelto] 20 mg PO MOWEFR 04/30/18 Prostasal 1 cap PO DAILY 05/01/18 Medical Decision Making - Diagnostics EKG Interpretation: EKG interpreted by me reveals normal sinus rhythm, rate 64, poor R-wave progression, T-wave inversions in leads V3 through V6. Interpretation: Abnormal EKG Imaging Results: Chest X-Ray 04/30/18 12:30 Impression: Suspect bilateral pneumonia. CTA chest: chronic PE, no infiltrate Imaging: Discussed imaging studies w/ yardage caller Radiologist, I viewed and interpreted images myself ED Course/Re-evaluation: This pt presents with acute worsening of SOB and hypoxia. Placed on oximask at 5 liters, O2 sat mid 90's and pt appears comfortable. Stat EKG reveals no evidence of ischemia or dysrhythmia, though initial troponin elevated, concerning for ACS vs RV strain d/t hypoxia. stat CXR ?bilateral infiltrates, though clinically no recent URI/fever, doubt pneumonia. CTA ordered and reveals chronic PE without evidence for acute PE. Pt stabilized on oximask, will require admission for further eval. The hospitalist service was consulted for admission. Differential Diagnosis: includes though not limited to ACS, pneumonia, PE, PTX, empyema - Data Points Laboratory Results: Laboratory Results 04/30/18 12:30 04/30/18 12:30 Medications Given: Atorvastatin Calcium (Lipitor) 20 mg PO DAILY LYN Stop: 10/28/18 08:59 Last Admin: 05/02/18 09:21 Dose: 20 mg Enoxaparin Sodium (Lovenox) 60 mg SC BID LYN Stop: 10/27/18 16:14 Last Admin: 05/02/18 09:21 Dose: 60 mg Fluticasone Propionate (Flonase Nasal [place]) 1 sprays EACHNARE DAILY LYN Stop: 10/28/18 08:59 Last Admin: 05/02/18 09:46 Dose: Not Given Furosemide (Lasix) 40 mg PO DAILY LYN Stop: 10/29/18 08:59 Last Admin: 05/02/18 09:22 Dose: 40 mg Miscellaneous Medication (Prostasal) 1 cap PO DAILY [facility] Stop: 10/27/18 18:29 Last Admin: 05/02/18 09:22 Dose: 1 cap Spironolactone (Aldactone) 25 mg PO DAILY LYN Stop: 10/29/18 08:59 Last Admin: 05/02/18 09:21 Dose: 25 mg Point of Care Test Results: Chemistry 04/30/18 12:34 POC Troponin I 0.26 ng/mL H ng/mL (0.00-0.08) Departure - Departure Disposition: [facility] Acute Clinical Impression: Elevated troponin Acute on chronic respiratory failure Qualifiers: Respiratory failure complication: hypoxia Qualified Code(s): J96.21 - Acute and chronic respiratory failure with hypoxia Condition: Fair
[2018-04-30] MEDS ORDERED: IOPAMIDOL (ISOVUE 370) 100 ML BTL IV ONE (14:02)
--- NOTE | 2018-04-30 15:04 | CPEKG ---
Test Reason : OPEN Blood Pressure : / mmHG Vent. Rate : 064 BPM Atrial Rate : 063 BPM P-R Int : 187 ms QRS Dur : 109 ms QT Int : 415 ms P-R-T Axes : 051 -48 118 degrees QTc Int : 428 ms Sinus rhythm Left anterior fascicular block Probable anteroseptal infarct, old Repol abnrm suggests ischemia, lateral leads Confirmed by Vicky Murphy ([id number]) on 04/30/2018 3:04:03 PM Referred By: VICKY MURPHY Confirmed By:Vicky Murphy
[2018-04-30] MEDS ORDERED: ACETAMINOPHEN 325 MG TAB PO PRN (15:22)
[2018-04-30] MEDS ORDERED: ONDANSETRON DISINTEGRATING 4 MG TAB PO PRN (15:22)
[2018-04-30] MEDS ORDERED: ONDANSETRON 4 MG/2 ML VIAL IVP PRN (15:22)
--- NOTE | 2018-04-30 15:24 | PDGENHP ---
History and Physical - Chief Complaint shortness of breath - History of Present Illness 87yo M with history of several PEs on xarelto, chronic hypoxemia on 4-5L at baseline, CVA, CAD presents with several weeks of shortness of breath. This rather abruptly worsened yesterday. He notices this especially with any exertion. He is typically able to walk about 40 feet without getting very winded but is unable to now. His friend, who checks in on him weekly, noticed that his oxygen saturations were in the 70s on 4L at home. He denies chest pain , cough, hemoptysis, fevers/chills, leg swelling. He reports that he has missed several doses of his xarelto. In the ED, a CTA of his chest showed similar pulmonary artery occlusion of the right middle and lower lobes, although an acute superimposed thrombus is difficult to exclude. It also shows interval evolution of a pulmonary infarct in the superior segment of the RLL. He was noted to be saturating 75% on 4L on arrival to the ED which improved to >90% on 5L oxymask. He is being admitted for further management. Case discussed with ED physician Vicky Argueta. Per patient's discussion with pharmacist, he has self-lowered his xarelto dose due to bruising and increased bleeding when he brushed his scabs off. He was taking 10mg four times weekly and 20mg three times weekly. Prior hospitalization notes indicate medication adherence issues as well. History Information - Allergies/Home Medication List Allergies/Adverse Reactions: No Known Allergies Allergy (Verified 04/30/18 12:10) Home Medications: Herbals/Supplements -Info Only 1 each PO AD 01/11/12 [Last Taken Unknown] Cyanocobalamin [Vitamin B12 (*)] 1,000 mcg PO DAILY 06/29/16 [Last Taken ] [place]-3 Fatty Acids [Fish Oil 1000 mg (*)] 1,000 mg PO DAILY 06/29/16 [Last Taken 06/17/17] Simvastatin [Zocor] 40 mg PO DAILY 06/29/16 [Last Taken 06/17/17] Prostate Cancer Medication 1 ea PO DAILY 06/18/17 [Last Taken Unknown] I have personally reviewed and updated: family history, medical history, social history, surgical history - Past Medical History Additional medical history: CVA with residual rigth sided paresthesias, CAD s/p remote stent, prostate cancer, BPH, PE, chronic hypoxemia - Surgical History Additional surgical history: Tonsillectomy - Family History Positive for: cancer - Social History Smoking Status: Never smoked Alcohol Use: Sober Drug Use: None Additional social history: Lives alone. Has friend check in on him weekly. Review of Systems Review of Systems: ROS: 10pt was reviewed & negative except for what was stated in HPI & below Physical Exam Physical Exam: Temp Pulse Resp BP Pulse Ox 36.3 C 70 16 134/64 H 92 04/30/18 12:10 04/30/18 14:30 04/30/18 14:30 04/30/18 14:30 04/30/18 14:30 Constitutional: no apparent distress, appears nourished, not in pain Eyes: PERRL, anicteric sclera, EOMI Ears, Nose, Mouth, Throat: moist mucous membranes, hearing normal, ears appear normal, no oral mucosal ulcers Cardiovascular: regular rate and rhythym, systolic murmur, No JVD, No edema Respiratory: no respiratory distress, reduced air movement, No expiratory wheeze , No rhonchi Gastrointestinal: normoactive bowel sounds, soft, non-tender abdomen, no palpable masses Genitourinary: no bladder fullness, no bladder tenderness Skin: warm, normal color, no rashes or abrasions, no fluctuance, no induration, No mottled Musculoskeletal: full muscle strength, no muscle tenderness, normal joint ROM, no joint effusions Neurologic: AAOx3 Psychiatric: interacting appropriately, not anxious, not encephalopathic, thought process linear Lab Data & Imaging Review 04/30/18 12:30 04/30/18 12:30 WBC 13.04 10^3/uL (3.80-9.50) H 04/30/18 12:30 RBC 3.56 10^6/uL (4.40-6.38) L 04/30/18 12:30 Hgb 9.6 g/dL (13.7-17.5) L 04/30/18 12:30 Hct 29.9 % (40.0-51.0) L 04/30/18 12:30 MCV 84.0 fL (81.5-99.8) 04/30/18 12:30 MCH 27.0 pg (27.9-34.1) L 04/30/18 12:30 MCHC 32.1 g/dL (32.4-36.7) L 04/30/18 12:30 RDW 20.1 % (11.5-15.2) H 04/30/18 12:30 Plt Count 537 10^3/uL (150-400) H 04/30/18 12:30 MPV 10.8 fL (8.7-11.7) 04/30/18 12:30 Neut % (Auto) Not Reported 04/30/18 12:30 Lymph % (Auto) Not Reported 04/30/18 12:30 [place] % (Auto) Not Reported 04/30/18 12:30 Eos % (Auto) Not Reported 04/30/18 12:30 Baso % (Auto) Not Reported 04/30/18 12:30 Nucleat RBC Rel Count Not Reported 04/30/18 12:30 Absolute Neuts (auto) Not Reported 04/30/18 12:30 Absolute Lymphs (auto) Not Reported 04/30/18 12:30 Absolute Monos (auto) Not Reported 04/30/18 12:30 Absolute Eos (auto) Not Reported 04/30/18 12:30 Absolute Basos (auto) Not Reported 04/30/18 12:30 Absolute Nucleated RBC Not Reported 04/30/18 12:30 Immature Gran % Not Reported 04/30/18 12:30 Seg Neutrophils % 68.7 % 04/30/18 12:30 Band Neutrophils % 1.0 % 04/30/18 12:30 Lymphocytes % 14.2 % 04/30/18 12:30 Monocytes % 13.1 % 04/30/18 12:30 Eosinophils % 2.0 % 04/30/18 12:30 Basophils % 0.0 % 04/30/18 12:30 Metamyelocytes % 0.0 % 04/30/18 12:30 Myelocytes % 1.0 % 04/30/18 12:30 Promyelocytes % 0.0 % 04/30/18 12:30 Blast Cells % 0.0 % 04/30/18 12:30 Immature Gran # Not Reported 04/30/18 12:30 Absolute Seg Neuts 8.96 10^3/uL (1.70-6.50) H 04/30/18 12:30 Absolute Band Neuts 0.13 10^3/uL (0.00-0.70) 04/30/18 12:30 Absolute Lymphocytes 1.85 10^3/uL (1.00-3.00) 04/30/18 12:30 Absolute Monocytes 1.71 10^3/uL (0.30-0.80) H 04/30/18 12:30 Absolute Eosinophils 0.26 10^3/uL (0.03-0.40) 04/30/18 12:30 Absolute Basophils 0.00 10^3/uL (0.02-0.10) L 04/30/18 12:30 Absolute Metamyelocyte 0.00 10^3/mL (0.00-0.00) 04/30/18 12:30 Absolute Myelocytes 0.13 10^3/mL (0.00-0.00) H 04/30/18 12:30 Absolute Promyelocytes 0.00 10^3/uL (0.00-0.00) 04/30/18 12:30 Absolute Plasma Cells 0.00 10^3/uL (0.00-0.00) 04/30/18 12:30 Nucleated RBCs 0 /100 WBC (0-0) 04/30/18 12:30 Absolute Blast Cells 0.00 10^3/uL (0.00-0.00) 04/30/18 12:30 Plasma Cells % 0.0 % 04/30/18 12:30 Toxic Granulation PRESENT H 04/30/18 12:30 Platelet Estimate INCREASED (ADEQ) H 04/30/18 12:30 Polychromasia 1+ H 04/30/18 12:30 Acanthocytes (Spur) 1+ H 04/30/18 12:30 Keratocytes 1+ H 04/30/18 12:30 Schistocytes 2+ H 04/30/18 12:30 D-Dimer 1.92 ug/mLFEU (0.00-0.50) H 04/30/18 12:30 Sodium 136 mEq/L (135-145) 04/30/18 12:30 Potassium 5.3 mEq/L (3.5-5.2) H 04/30/18 12:30 Chloride 106 mEq/L (97-110) 04/30/18 12:30 Carbon Dioxide 24 mEq/l (22-31) 04/30/18 12:30 Anion Gap 6 mEq/L (6-14) 04/30/18 12:30 BUN 35 mg/dL (7-23) H 04/30/18 12:30 Creatinine 1.2 mg/dL (0.7-1.3) 04/30/18 12:30 Estimated GFR 57 04/30/18 12:30 Glucose 115 mg/dL (70-100) H 04/30/18 12:30 Calcium 9.4 mg/dL (8.5-10.4) 04/30/18 12:30 POC Troponin I 0.26 ng/mL (0.00-0.08) H 04/30/18 12:34 NT-Pro-B Natriuret Pep 2050 pg/mL (0-450) H 04/30/18 12:30 Interpretation: CXR: mild cardiomegaly, diffuse bilateral interstitial markings , no effusion. 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 Plan: #Acute on chronic hypoxemic respiratory failure: Increased work of breathing and hypoxic to 75% on 4L. Now stable on 5L oxymask (typically wears 4-5L at home ). Suspect this is related to worsening pulmonary hypertension and pulmonary infarctions from OAC non-adherence although unable to exclude acute PE. Low concern for infectious process or heart failure. - Lovenox 1mg/kg q12h - Plan to switch to oral agent in AM. He has previously been non-adherent to warfarin and now xarelto - TTE - Recommend setting up home health to ensure taking meds #Chronic pulmonary emboli: Management as above. #Elevated troponin: Likely consistent with RV strain from above. No chest pain or acute ischemia on ECG. - Trend troponin, keep on telemetry #CAD: Notes report prior history of stent but patient denies. He is on a statin but no antiplatelet therapies. He does not have chest pain. #H/o prostate cancer: Not currently on treatment. #CVA: Residual right extremity clumsiness. Doesn't use walker/cane at baseline. VTE ppx: therapeutic anticoagulation Code: DNR/DNI Diet: regular Dispo: Admit as inpatient, suspect will require >2 MN stay noting his hypoxia and that he lives alone
[2018-04-30] MEDS: ENOXAPARIN 60 MG/0.6 ML SYR SC SCH (16:42)
[2018-04-30] MEDS: [UNRECOGNIZED DRUG - OTHER] PO SCH ×2 (18:27→18:29)
[2018-05-01] MEDS: ENOXAPARIN 60 MG/0.6 ML SYR SC SCH ×3 (00:07→21:39)
[2018-05-01 04:21] LABS: PLATELET COUNT 489 10^3/uL (150-400)
[2018-05-01] MEDS ORDERED: Herbals/Supplements -Info Only PO SCH (06:00)
[2018-05-01] MEDS: ATORVASTATIN CALCIUM 20 MG TAB PO SCH (08:40)
[2018-05-01] MEDS: FLUTICASONE NASAL 120 SPRAYS/16 GM MDI EACHNARE SCH (08:44)
[2018-05-01] MEDS: [UNRECOGNIZED DRUG - OTHER] PO SCH (08:45)
[2018-05-01] MEDS ORDERED: ENOXAPARIN 40 MG/0.4 ML SYR SC SCH (09:00)
--- NOTE | 2018-05-01 11:30 | PDMN ---
Medical Necessity Medical necessity: Pt meets IP criteria per MD & MCG [id number]; est los >2 mn for eval/tx of chronic PEs w/acute on chronic hypoxemic respiratory failure (75% on 4L O2) & elevated troponin r/t suspected worsening pulmonary htn/infarctions; admit for further monitoring, respiratory supportive care & med management; comorbid advanced age, CAD, anticoagulation non-adherence; per H&P & order
--- NOTE | 2018-05-01 12:54 | ECHO ---
[email or web address] [address] Main: [phone] Echocardiography Examination Transthoracic Name: IBLL WEST MR#: [id number] Study Date: 05/01/2018 Study Time: 08:04 AM Date of : 1930 Age: 87 year(s) Height: 172.7 cm (68 in.) Weight: 68.04 kg (150 lb.) BSA: 1.81 m2 Gender: Male Examination: Echo Contrast: Image Quality: Good Rhythm: Normal sinus rhythm Heart Rate: 66 bpm BP: 125 mmHg/57 mmHg Indication: Acute Hypoxia Procedure Staff Referring Physician: Varnish Thinner: Jey Hyde RDCS Reading Physician: Filemon Fuller MD Requesting Provider: Ordering Physician: Tomer Burrows Indication: Acute Hypoxia Measurements Chambers AV/MV Label Value Normal Value Label Value Normal Value EF lower range (%) 55 % AV PGmax 5 mmHg EF upper range (%) 60 % AV PGmean 4 mmHg IVSd, 2D 0.8 cm (0.6cm - 1.1cm) AV Vmax 1.16 m/s LVDd, 2D 4.3 cm (4.2cm - 5.9cm) MARCELLO (continuity eq. 3.1 cm2 LVDs, 2D 3 cm (2.1cm - 4cm) Vmax) LVEF visual 55 % MARCELLO D (continuity eq. 3.1 cm2 LVEF, 2D 58 % (54% - 74%) VTI) LVOT PGmax 4 mmHg MV A Vmax 1.08 m/s LVOT PGmean 2 mmHg MV E' lateral 0.04 m/s LVOT Vmax 1.03 m/s (0.7m/s - 1.1m/s) MV E' mean 0.04 m/s LVOT Vmean 0.64 m/s MV E' septal 0.04 m/s LVOTd 2.1 cm (1.9cm - 2.1cm) MV E Vmax 0.83 m/s LVPWd, 2D 1 cm (0.6cm - 1cm) MV E/A 0.77 LA Area, A2C 19.7 cm2 (0cm2 - 20cm2) MV E/E' lateral 23 LA Volume, A2C 53 ml (18ml - 58ml) MV E/E' mean 20.75 LA Volume, A4C 63 ml (16ml - 34ml) MV E/E' septal 18.9 (0.45 - 1.25) LA Volume, BP 59 ml (18ml - 58ml) TV/PV LAESV index, MOD4 34.8 ml/m2 Label Value Normal Value Additional Vessels PV PGmax 4 mmHg Patient: BILL WEST Study Date: 05/01/2018 Page 1 of 3 08:04 AM Label Value Normal Value PV Vmax, Caliper 1 m/s (0.6m/s - 0.9m/s) AoRoot, MM 3 cm (2.2cm - 3.7cm) Conclusions Left Ventricle: The EF is visually estimated to be 55 %. Mitral Valve: Trivial mitral regurgitation. Tricuspid Valve: No significant tricuspid regurgitation. Pulmonary artery pressure cannot be assessed due to inadequate TR signal. Findings Left Ventricle: Left ventricle is normal in size. Low normal left ventricular systolic function. The EF is visually estimated to be 55 %. EF range is estimated at 55 % - 60 %. Left ventricle wall thickness is normal. There are no regional wall motion abnormalities. Grade II Diastolic Dysfunction. Right Ventricle: Normal size right ventricle. Right ventricular systolic function is normal. Left Atrium: The left atrium is mildly dilated. Left Atrium Measurements LAESV index, MOD4 is 34.8 ml/m2. Right Atrium: The right atrium is normal in size. Mitral Valve: Mitral valve appears structurally normal. Trivial mitral regurgitation. Aortic Valve: Aortic leaflets are structurally normal. No aortic valve regurgitation. Aortic leaflets exhibit mild calcification. The aortic valve is trileaflet. Tricuspid Valve: There was previously moderate tricuspid regurgitation with a RVSP 73 mmHg 06/28/16. Tricuspid valve leaflets are normal in appearance and function. No significant tricuspid regurgitation. Pulmonary artery pressure cannot be assessed due to inadequate TR signal. Pulmonic Valve: Pulmonic leaflets are normal in appearance and function. No significant pulmonic valve regurgitation is evident. Aorta: The aorta is normal. The aortic root size in M-mode measures 3.0 cm. Aorta Measurements AoRoot, MM is 3.0 cm. Pericardium: Compared to the previous exam of 06/18/17 there has been no significant change.. No pericardial effusion. Exam Details Procedure Ordered: Echo Procedure Status: Routine study Image Quality: Good Facility Location: Cardiac Echo 1 Patient: BILL WEST Study Date: 05/01/2018 Page 2 of 3 08:04 AM (No Signature Object) Patient: BILL WEST Study Date: 05/01/2018 Page 3 of 3 08:04 AM [id number]
--- NOTE | 2018-05-01 15:06 | PDCONSULT ---
Lawnmower Mechanic Note: ASSESSMENT 87-year-old male with acute on chronic hypoxemic respiratory failure as well as chronic thromboembolic pulmonary hypertension. # chronic thromboembolic pulmonary hypertension. History of recurrent PEs. Also gaps in compliance anticoagulation. Difficulties with warfarin/Coumadin due to INR monitoring and geographic location. Reported bleeding issues on rivaroxaban. Prior imaging year prior showed acute to subacute thrombus in bilateral lower lobes. Imaging this visit is classic for chronic thromboembolic disease and right middle and right lower lobes as well as evidence of distal peripheral disease and left lower lobe. # acute on chronic hypoxemic respiratory failure. May be worsening of pulmonary hypertension versus mild viral bronchiolitis given radiographic images. Was a continuation is most likely due to # need for chronic oral anticoagulation # anemia. Iron replete. Possibly occult blood loss in the setting of his systemic anticoagulation versus is MDS versus other. PLAN # suggest Lasix 40 oral p.o. Daily and spironolactone 25 mg daily # given age and prior issues with bleeding on warfarin and rivaroxaban I suggest Eliquis 5 mg p. O. Twice daily given safety profile and elderly patients. He is not ideal warfarin candidate given distance from healthcare facilities # suggest heparin drip until transition to Eliquis # if patient is to remain inpatient for placement I can facilitate a right heart catheterization to confirm patient's pulmonary hypertension and qualify him for therapies as well as to help guide diuresis. # consider zpack for empiric atypical infection given leukocytosis and imaging # may consider workup for anemia as outpatient. DATA Hemoglobin WBC 12.4, hemoglobin 8.9, platelets 49, ferritin 426, troponin 3.8, vitamin B12 greater than a 1000, MCV 83 IMAGING 04/30/2018 CTA chest evidence of mild right heart strain, interval resolution of acute thrombus in right main PA, vessel dropout and right middle and right lower lobes as well as some evidence of distal thromboembolic disease in bilateral lower lobes,. Lymphatic nodularity and thickening in right lower lobe. Bronchial collaterals present, possible infarct in superior segment of right lower lobe, small bilateral nodules unchanged was a continuation present CONSULT I was asked by Dr. Blankenship [facility] to evaluate this patient for chronic thromboembolic pulmonary hypertension and possible right heart failure. Chief complaint Shortness of breath HPI 87-year-old male with multiple pulmonary embolisms on chronic anticoagulation and chronic hypoxemic respiratory failure as well as prior CVA and coronary disease who presents emergency department with several weeks of progressive shortness of breath and leg swelling. Day prior to admission is worsen. Patient says is significantly worse with exertion mildly improved with rest. He routinely uses 4 liters/minute nasal cannula however was satting in the 70s at home. He denied fevers, chills, nausea, vomiting, melena, hematemesis, hemoptysis, cough After being admitted to the hospital he underwent CTA chest which demonstrated evidence of chronic thromboembolic disease in right middle and lower lobes as well as a mildly dilated pulmonary artery. He also had a mildly elevated troponin which trended down. He has had some issues with adherence with anticoagulation regimen secondary to easy bruising occasional bleeding. He was previously on Coumadin. Allergies No known drug allergies Past medical history Recurrent pulmonary embolisms has been treated both at [facility] and at other hospitals., CVA with mild right residual weakness, CAD status post remote PCI, remote history of prostate cancer, BPH, chronic hypoxemic respiratory failure Social history Tonsillectomy Family history No history of recurrent PEs and chronic thromboembolic pulmonary hypertension Social history Lives alone [place], [place] neighbors check on him regularly. Has Meals on wheels Review of systems A comprehensive 10 point review of systems was obtained is negative except as per HPI Physical exam Pulse 80, blood pressure 123/76, respiratory rate 14 94% 6 L GEN: NAD, up in chair, interactive NEURO: A&Ox3, CN 2-12 GI. Very hard of hearing HEENT: PERRL, EOMI, MMM, OP clear NECK: supple, trachea midline CHEST barrel-chested, scoliosis present CVS: rrr no m/r/g, JVD present, prominent S2 PULM: CTA B, no wheezes/rales/rhonchi ABD: soft, NT, ND, NABS EXT: no swelling, no cyanosis, full ROM SKIN: Trace bilateral lower extremity edema PSYCH CAM negative, appropriate affect
--- NOTE | 2018-05-01 15:51 | ASMTCMCOM ---
CM Note CM Note Notes: 05/01/2018 Case Management Note Pt admitted for sypnea. Met w/pt to discuss d/c needs. Pt lives alone. Pt has hired caregiver Usha [phone]. Usha is also employed by pt neighbor, spends a couple of hours a day with pt. Pt states he is having surgery tomorrow "to connect my neck to my lungs". Pt has previous stay at [facility] in 2018. Faxed referrals to [facility] and [facility] in [place] after discussing with pt. Pt agreeable to home care. Pt lives in [facility]. Faxed referral to [facility] at pt request. Case Management d/c poc: to be determined. Case Management to follow. Date Signed: 05/01/2018 03:50 PM Electronically Signed By:Noreen Villagomez RN
--- NOTE | 2018-05-01 19:40 | HOSPPROG ---
Hospitalist Progress Note Assessment/Plan: DIAGNOSES: - Acute hypoxemic respiratory failure on chronic hypoxemic respiratory failure - Acute right-sided heart failure - Strong suspect chronic pulmonary hypertension right-sided heart failure - Known chronic pulmonary embolism again seen on CT now - CT scan abnormality suggesting possible inflammatory lungs disease such as hypersensitivity pneumonitis, viral infection or other - Minimal elevation of troponins likely due to right-sided heart failure, I do not suspect acute coronary syndrome - normocytic anemia uncertain cause may be contributing to his dyspnea and seems to be worsening (would typically expect if anything high hemoglobin given his hypoxemia) PLANS: IV Lasix, Aldactone I reviewed the case in detail with Dr. Fuentes Jalloh he will see the patient in consultation Continue oxygen Resume anticoagulation which the patient has been noncompliant with Recheck hemoglobin in morning Check reticulocyte count, sedimentation rate, and iron studies SUBJECTIVE: Still short of breath but not too far from his baseline OBJECTIVE Vitals reviewed: Very hypoxemic but otherwise stable without fever Industrial Electrician Journeyman, my review: Sinus Exam: alert oriented skin warm dry color ok resps not labored lungs somewhat coarse breath sounds diffusely with very fine rales heart regular abd soft nondistended nontender, bowel sounds present limbs warm, mild pitting edema of both legs from the knees down to the ankles iv site ok White blood cell count still elevated at 12,000 thousand Anemia still present slightly worse today than yesterday Troponins remain minimally elevated unchanged, do not suspect acute coronary syndrome Potassium now normalized BUN normalized Objective: Vital Signs Temp Pulse Resp BP Pulse Ox 36.7 C 72 20 108/42 L 90 L 05/01/18 19:37 05/01/18 19:37 05/01/18 19:37 05/01/18 19:37 05/01/18 19:37 Laboratory Results 05/01/18 03:36 05/01/18 03:36 04/30/18 05/01/18 05/02/18 06:59 06:59 06:59 Intake Total 300 Output Total 300 250 Balance 0 -250 ICD10 Worksheet Patient Problems: Problems Problem Status Onset CAD - Coronary arteriosclerosis Active Pulmonary embolism Active Acute exacerbation of congestive heart failure Acute Chronic hypoxemic respiratory failure Acute Chronic obstructive pulmonary disease with acute exacerbation Acute Elevated troponin Acute Elevated troponin I level Acute Hypoxia Acute Palliative care encounter Acute Pulmonary embolism Acute
[2018-05-02] MEDS: SPIRONOLACTONE 25 MG TAB PO SCH (09:21)
[2018-05-02] MEDS: ATORVASTATIN CALCIUM 20 MG TAB PO SCH (09:21)
[2018-05-02] MEDS: ENOXAPARIN 60 MG/0.6 ML SYR SC SCH (09:21)
[2018-05-02] MEDS: FUROSEMIDE 40 MG TAB PO SCH (09:22)
[2018-05-02] MEDS: [UNRECOGNIZED DRUG - OTHER] PO SCH (09:22)
[2018-05-02] MEDS: FLUTICASONE NASAL 120 SPRAYS/16 GM MDI EACHNARE SCH (09:46)
[2018-05-02] MEDS ORDERED: EPOPROSTENOL SODIUM (ARGININE) 300,000 NG in NS 100 ML IV ONE (11:38)
--- NOTE | 2018-05-02 12:06 | PDPROPOC ---
Sedation Plan of Care Sedation Plan of Care: vital signs stable, mental status noted, patient educated of risks, benefits, alternatives, patient can tolerate sedation ASA Classification: ASA 3 Mallampati Score: Class 2 Mallampati Reference Image: Patient passed 3-3-2 rule?: Yes
--- NOTE | 2018-05-02 12:06 | PDHPUP ---
History & Physical Update H&P update statement: This history and physical update is based on an assessment of the patient which was completed after admission or registration (within 24 hours), but prior to the surgery/procedure. H&P update: H&P reviewed & patient examined, no change in patient's condition since H&P completed
--- NOTE | 2018-05-02 13:12 | SUROPNOTE ---
[facility] Operative Report - Surgery PROCEDURE PERFORMED: Diagnostic right heart catheterization with ultrasound guided vascular access and acute vasoreactivity testing PREOPERATIVE DIAGNOSIS: Chronic thromboembolic pulmonary hypertension POSTOPERATIVE DIAGNOSIS: Chronic thromboembolic pulmonary hypertension ATTENDING PHYSICIAN: Karoline Jalloh MD ANESTHESIA: 5 mL of 2% lidocaine injected locally. COMPLICATIONS: None. ESTIMATED BLOOD LOSS: None. PROCEDURE DESCRIPTION: Informed consent was obtained prior to the procedure. A time-out was performed prior to the procedure, confirming the patient's name, procedure type and procedure location. The patient was prepped and draped in the usual sterile fashion, exposing the right neck. The right internal jugular vein was visualized with real-time ultrasound guidance, and pulsatile flow was confirmed. The skin above the right internal jugular was anesthetized with 5 mL of 2% lidocaine. The right internal jugular vein was then accessed with 1 stick without arterial puncture under direct real-time ultrasound guidance. Image was saved to the chart. The guidewire initially did not advance and under fluoroscopy was noted to be in the right subclavian vein after manipulation a passed easily into the distal SVC. The position in the venous system was confirmed with the ultrasound and under fluoroscopy, and a 7-Polish "Precision" micropuncture kit was used to place a 7-Polish lumen introducer sheath via modified Seldinger technique. A 7-Polish [place]-Abraham catheter was then advanced through the sheath into the right atrium, right ventricle, pulmonary artery and pulmonary artery occlusion pressure positions. Hemodynamic measurements and saturation measurements were obtained in the usual fashion. Following these measurements, the patient was administered iv epoprostenol at 2 ng/kg/min and uptitrated by 2 ng/kg/min every 10 minutes up to . Following these measurements, the [place]-Abraham catheter was removed, followed by removal of the sheath, and hemostasis was achieved. There were no complications from the procedure. Sinus Rhythm: Yes Procedure Findings: Baseline Epoprostenol 10 ng/kg/min Units RA [a/v (mean)] 10/12/8 NA mmHg RV [Sys/Rivas (RVEDP)] 62/1/13 NA mmHg PA [Sys/Rivas (Mean)] 70/19 (36) 70/19 (36) mmHg PAOP [End Exp (Mean)] 12 [14] 12 [ 14] mmHg TD CO (CI) 5.47 (3.02) NA L/min (L/min/m2) Yasmeen CO (CI) 4.65 (2.57) 4.66 (2.55) L/min (L/min/m2) TD PVR 4.02 NA BUSTOS Yasmeen PVR 4.73 4.8 BUSTOS PA sat% 67 64 % SpO2 sat% 100 100 % Venous Oxygen Saturation SaO2: SVC RA PA Ao 67% 63% 65% 100% ASSESSMENT 87 year old male with chronic thromboembolic pulmonary hypertension # chronic thromboembolic pulmonary hypertension, WHO group 4 # no e/o L to R shunt # NYHA functional class III # need for chronic oral anticoagulation # chronic hypoxemic respiratory failure. No significant lung disease. related to CTEPH as above PLAN # continue systemic anticoagulation, suggest eliquis 5 mg PO bid on discharge # will submit prior authorization for Adempas on discharge # add sildenafil for now given severe symptoms # continue supplemental oxygen therapy # continue diuresis
[2018-05-02] MEDS ORDERED: LIDOCAINE 1% 300 MG/30 ML SDV ONE (13:13)
[2018-05-02] MEDS ORDERED: fentaNYL 100 MCG/2 ML INJ ONE (13:13)
[2018-05-02] MEDS ORDERED: MIDAZOLAM 2 MG/2 ML VIAL ONE (13:14)
--- NOTE | 2018-05-02 13:19 | HOSPPROG ---
Hospitalist Progress Note Assessment/Plan: DIAGNOSES: - Acute hypoxemic respiratory failure on chronic hypoxemic respiratory failure - Acute right-sided heart failure - Strongly suspect chronic pulmonary hypertension right-sided heart failure (on current echo and previous echoes details were not clear enough to be able to make estimate of right-sided pressures) - Known chronic pulmonary embolism again seen on CT now - CT scan abnormality suggesting possible inflammatory lung disease such as hypersensitivity pneumonitis, viral infection or other - Minimal elevation of troponins likely due to right-sided heart failure, I do not suspect acute coronary syndrome - normocytic anemia uncertain cause may be contributing to his dyspnea and seems to be worsening (would typically expect if anything high hemoglobin given his hypoxemia) - gait instability fall risk; patient lives alone in a [place] in [facility], may need rehab at the time of discharge PLANS: IV Lasix, start Aldactone He will go to lab asst today for right-sided heart catheterization to check pulmonary pressures cardiac output etc Continue oxygen Resume anticoagulation for which the patient has been noncompliant; plans and patient home on Eliquis long-term Recheck hemoglobin in morning Check reticulocyte count, sedimentation rate, and iron studies Seen by me today on hospitals rounds as well as multidisciplinary rounds I reviewed in detail today with Dr. Fuentes Jalloh SUBJECTIVE: Still short of breath but not too far from his baseline Fairly weak Nursing staff, physical therapist, and occupational therapist are recommending correction facility upon discharge OBJECTIVE Vitals reviewed: Very hypoxemic but otherwise stable without fever Vegetable Farm Worker, my review: Sinus Exam: alert oriented skin warm dry color ok resps not labored lungs somewhat coarse breath sounds diffusely with very fine rales heart regular abd soft nondistended nontender, bowel sounds present limbs warm, mild pitting edema of both legs from the knees down to the ankles iv site ok Lab data: White blood cell count still elevated at 12,000 thousand Anemia still present slightly worse today than yesterday Troponins remain minimally elevated unchanged, do not suspect acute coronary syndrome Potassium now normalized BUN normalized somewhat Objective: Vital Signs Temp Pulse Resp BP Pulse Ox 36.8 C 63 18 101/69 97 05/02/18 07:49 05/02/18 07:49 05/02/18 07:49 05/02/18 07:49 05/02/18 07:49 Laboratory Results 05/01/18 03:36 05/01/18 03:36 05/01/18 05/02/18 05/03/18 06:59 06:59 06:59 Intake Total 300 50 Output Total 300 975 200 Balance 0 -925 -200 - Time Spent With Patient Time Spent with Patient: greater than 35 minutes Time Spent with Patient: Greater than 35 minutes spent on this patients care, greater than 50% of time spent counseling, educating, and coordinating care regarding the above mentioned plan. ICD10 Worksheet Patient Problems: Problems Problem Status Onset Acute on chronic respiratory failure Acute Elevated troponin Acute CAD - Coronary arteriosclerosis Active Pulmonary embolism Active Acute exacerbation of congestive heart failure Acute Chronic hypoxemic respiratory failure Acute Chronic obstructive pulmonary disease with acute exacerbation Acute Elevated troponin I level Acute Hypoxia Acute Palliative care encounter Acute Pulmonary embolism Acute
[2018-05-02] MEDS ORDERED: IOPAMIDOL (ISOVUE-300) 50 ML VIAL ONE (13:54)
--- NOTE | 2018-05-02 14:53 | ASMTCMCOM ---
CM Note CM Note Notes: 05/02/2018 Case Management Note Discussed pt during rounds today. Pt to pathology laboratory technologist today. Onsite visits attempted by Son from [facility] and Aisha from [facility]. Pt has previous SNF stay with [facility]. Faxed referral to [facility] home care. Per [facility] [place], [facility] has opened pt in the past in [place]. Case Management d/c poc: SNF rehab vs Home Care. Case Management to follow. Date Signed: 05/02/2018 02:53 PM Electronically Signed By:Noreen Villagomez RN
--- NOTE | 2018-05-02 16:31 | PDINTPN ---
Carroter Progress Note Assessment/Plan: 87-year-old male with acute on chronic hypoxemic respiratory failure as well as chronic thromboembolic pulmonary hypertension. # chronic thromboembolic pulmonary hypertension. History of recurrent PEs. Previously with gaps in anticoagulation. Difficulties with warfarin/Coumadin due to INR monitoring and geographic location. Reported bleeding issues on rivaroxaban. Prior imaging year prior showed acute to subacute thrombus in bilateral lower lobes. Imaging this visit is classic for chronic thromboembolic disease and right middle and right lower lobes as well as evidence of distal peripheral disease and left lower lobe. RHC 05/02/18 confirms PH w/o vasoreactivity # acute on chronic hypoxemic respiratory failure. May be worsening of pulmonary hypertension versus mild viral bronchiolitis given radiographic images. Was a continuation is most likely due to # need for chronic oral anticoagulation # anemia. Iron replete. Possibly occult blood loss in the setting of his systemic anticoagulation versus is MDS versus other. # right heart strain. due to PH and hypervolemia. WIRE INSULATOR 2049 and mildly elevated troponin PLAN # continue lasix and spironolactone for RV remodeling # given age and prior issues with bleeding on warfarin and rivaroxaban I suggest Eliquis 5 mg PO BID given safety profile and elderly patients. He is not ideal warfarin candidate given distance from healthcare facilities # okay to transition to DOAC # start sildenafil 20 PO TID (ordered)until we can get adempas approved ( unlikely to happen for another 2-4 weeks) # consider zpack for empiric atypical infection given leukocytosis and imaging # may consider workup for anemia as outpatient. DATA Hemoglobin WBC 12.4, hemoglobin 8.9, platelets 49, ferritin 426, troponin 3.8, vitamin B12 greater than a 1000, MCV 83 05/02/18 RHC RA 8, RV 62//13, PA 70/ (36), PAOP 14, TD CO (CI) 5.47 (3.02), Yasmeen CO 4.65 (2.57), no acute vasoreactivity to IV epoprostenol 05/02/18 16:31 IMAGING 04/30/2018 CTA chest evidence of mild right heart strain, interval resolution of acute thrombus in right main PA, vessel dropout and right middle and right lower lobes as well as some evidence of distal thromboembolic disease in bilateral lower lobes,. Lymphatic nodularity and thickening in right lower lobe. Bronchial collaterals present, possible infarct in superior segment of right lower lobe, small bilateral nodules unchanged was a continuation present. Subjective: Doing well. Tolerated right heart catheterization vasoreactivity testing. Complains of mild neck pain but no fevers, chills, nausea vomiting. Objective: Vital Signs Temp Pulse Resp BP Pulse Ox 36.6 C 61 18 136/68 H 97 05/02/18 15:57 05/02/18 15:57 05/02/18 15:57 05/02/18 15:57 05/02/18 15:57 Laboratory Results 05/01/18 03:36 05/01/18 03:36 05/01/18 05/02/18 05/03/18 05:59 05:59 05:59 Intake Total 300 50 Output Total 111 121 1214 Balance 0 -925 -1670 Physical Exam - Physical Exam General Appearance: alert, no apparent distress EENT: PERRL/EOMI, normal ENT inspection, pharynx normal Neck: non-tender, full range of motion Respiratory: chest non-tender, lungs clear, normal breath sounds Cardiac/Chest: normal peripheral pulses, regular rate, rhythm, edema, other ( prominent) Abdomen: normal bowel sounds, non-tender, No organomegaly Back: Normal inspection Skin: normal color, warm/dry, other (ecchymosis) Extremities: normal range of motion, non-tender Neuro/Psych: no motor/sensory deficits, alert, normal mood/affect, oriented x 3 ICD10 Worksheet Patient Problems: Problems Problem Status Onset Acute on chronic respiratory failure Acute Elevated troponin Acute CAD - Coronary arteriosclerosis Active Pulmonary embolism Active Acute exacerbation of congestive heart failure Acute Chronic hypoxemic respiratory failure Acute Chronic obstructive pulmonary disease with acute exacerbation Acute Elevated troponin I level Acute Hypoxia Acute Palliative care encounter Acute Pulmonary embolism Acute
[2018-05-02] MEDS: SILDENAFIL CITRATE 20 MG TAB PO SCH (18:07)
[2018-05-02] MEDS: APIXABAN 5 MG TAB PO SCH (21:22)
[2018-05-03 04:29] LABS: PLATELET COUNT 538 10^3/uL (150-400)
[2018-05-03 09:39] VITALS: BP 113/51
[2018-05-03] MEDS: SILDENAFIL CITRATE 20 MG TAB PO SCH ×2 (09:47→12:28)
[2018-05-03] MEDS: ATORVASTATIN CALCIUM 20 MG TAB PO SCH (09:48)
[2018-05-03] MEDS: FUROSEMIDE 40 MG TAB PO SCH (09:48)
[2018-05-03] MEDS: SPIRONOLACTONE 25 MG TAB PO SCH (09:48)
[2018-05-03] MEDS: APIXABAN 5 MG TAB PO SCH (09:48)
[2018-05-03] MEDS: [UNRECOGNIZED DRUG - OTHER] PO SCH (09:48)
[2018-05-03] MEDS: FLUTICASONE NASAL 120 SPRAYS/16 GM MDI EACHNARE SCH (09:49)
--- NOTE | 2018-05-03 11:17 | PDIAF ---
- Diagnosis Code Status: Do Not Resuscitate - Medication Management Discharge Medications: electronically signed and located in the Home Medication List. - Orders Services needed: Registered Nurse, Certified Apron Worker, Physical Therapy, Occupational Therapy Diet Recommendation: sodium restricted Diet Texture: Regular Texture Diet Additional Instructions: Resume activity as tolerated. Follow up with your primary care doctor for further evaluation and treatment of your pulmonary embolus, pulmonary hypertension and anemia. - Follow Up Care Current Providers and Referrals: FLORA REYES [Primary Care Provider] -
--- NOTE | 2018-05-03 12:34 | ASMTDCNOTE ---
Case Management Discharge Discharge Order Complete? Answers: Yes Patient to Obtain Answers: Other Notes: [place] [facility] Medications Transportation Arranged Answers: Other Notes: Son from [facility] Records Car e arranged w/c transport with [facility] will Pick (Date 05/03/2018 02:00 PM & Time) Faxed Final Orders Answers: Yes Notes: to [place] [facility] Agency/Facility Transfer Answers: Yes Notes: to [facility] Report Printed & Faxed to Receiving Agency Family Notified Answers: Yes Notes: notified caregiver Usha on the phone Discharge Comments Notes: 05/03/2018 Case Management Note Faxed final orders to [facility]. Son arranged transport with [facility]. Notified caregiver Usha [phone] at pt request of discharge. Case Management d/c poc: [place] [facility] Date Signed: 05/03/2018 12:29 PM Electronically Signed By:Noreen Villagomez RN
--- NOTE | 2018-05-03 12:34 | ASDISCHSUM ---
Discharge Information Plan Status:SNF Medically Cleared to Leave:05/03/2018 Discharge Date:05/03/2018 CM D/C Disposition:[facility] Facility ADT D/C Disposition:[facility] Facility Projected Discharge Date:05/02/2018 11:00 AM Transportation at D/C:Wheelchair Van Discharge Delay Reason: Follow-Up Date:05/02/2018 11:00 AM Discharge Slot: Final Diagnosis: Placement Information Referral Type:*Home Health Care Services Referral ID:[id number] Provider Name: Address 1: Phone Number: Address 2: Fax Number: City: Selection Factors: State: Referral Type:*Alf/SNF Referral ID:[id number] Provider Name:[facility] Address 1:[address] Address 2: City:[place] Selection Factors: State:[place] Patient Contact Information Contact Name:THELMA Relationship: Address:[place] Home Phone: Work Phone: City:[place] Alternate Phone: State/Zip Code:[place] Email: Financial Information Financial Class:Medicare Primary Plan Desc:MEDICARE INPATIENT Primary Plan Number:[id number] Secondary Plan Desc:HUMANA Secondary Plan Number:[id number] Assessment Information LACE LACE Length of stay for Answers: 2 days current admission Acuity / Level of Answers: Yes Care: Did the patient have an inpatient admission? Comorbidities - select Answers: Cerebrovascular disease all that apply (CVA, TIA, aneurysms, vasc ular dementia) Coronary Artery Disease Other Notes: Hx of PE # of Emergency department Answers: 1-2 visits in the last 6 months Score: 10 Date Signed: 05/03/2018 12:27 PM Electronically Signed By:Noreen Villagomez RN [facility] Progress Note CM Note CM Note Notes: 05/01/2018 Case Management Note Pt admitted for sypnea. Met w/pt to discuss d/c needs. Pt lives alone. Pt has hired caregiver Usha [phone]. Usha is also employed by pt neighbor, spends a couple of hours a day with pt. Pt states he is having surgery tomorrow "to connect my neck to my lungs". Pt has previous stay at [facility] in 2018. Faxed referrals to [facility] and [facility] in [place] after discussing with pt. Pt agreeable to home care. Pt [facility]. Faxed referral to [facility] at pt request. Case Management d/c poc: to be determined. Case Management to follow. Date Signed: 05/01/2018 03:50 PM Electronically Signed By:Noreen Villagomez RN [facility] CM Progress Note CM Note CM Note Notes: 05/02/2018 Case Management Note Discussed pt during rounds today. 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 Onsite visits attempted by Son from [facility] and Aisha from [facility]. Pt has previous SNF stay with [facility]. Faxed referral to [facility] home care. Per [facility], [facility] has opened pt in the past in [place]. Case Management d/c poc: SNF rehab vs Home Care. Case Management to follow. Date Signed: 05/02/2018 02:53 PM Electronically Signed By:Noreen Villagomez RN Case Management Discharge Plan Note Case Management Discharge Discharge Order Complete? Answers: Yes Patient to Obtain Answers: Other Notes: [place] [facility] Medications Transportation Arranged Answers: Other Notes: Son from [employer] Car e arranged w/c transport with [facility] will Pick (Date 05/03/2018 02:00 PM & Time) Faxed Final Orders Answers: Yes Notes: to [facility] Agency/Facility Transfer Answers: Yes Notes: to [facility] Report Printed & Faxed to Receiving Agency Family Notified Answers: Yes Notes: notified caregiver Usha on the phone Discharge Comments Notes: 05/03/2018 Case Management Note Faxed final orders to [facility]. Son arranged transport with [facility]. Notified caregiver Usha [phone] at pt request of discharge. Case Management d/c poc: [place] [facility] Date Signed: 05/03/2018 12:29 PM Electronically Signed By:Noreen Villagomez RN Intervention Information Intervention Type:*IM-Signed Date of Service:05/03/2018 11:25 AM Patient Type:Inpatient Staff Member:Sunita Rod Hours: Discipline: Severity: Comment:
--- NOTE | 2018-05-03 13:20 | PDINTPN ---
Process Development Technician Progress Note Assessment/Plan: 87-year-old male with acute on chronic hypoxemic respiratory failure as well as chronic thromboembolic pulmonary hypertension. # chronic thromboembolic pulmonary hypertension. History of recurrent PEs. Previously with gaps in anticoagulation. Difficulties with warfarin/Coumadin due to INR monitoring and geographic location. Reported bleeding issues on rivaroxaban. Prior imaging year prior showed acute to subacute thrombus in bilateral lower lobes however current imaging is classic for chronic thromboembolic disease in right middle and right lower lobes as well as evidence of distal peripheral disease and left lower lobe. RHC 05/02/18 confirmed PH w/o vasoreactivity # acute on chronic hypoxemic respiratory failure. May be worsening of pulmonary hypertension with decompensation versus mild viral bronchiolitis given radiographic images. Was a continuation is most likely due to # need for chronic oral anticoagulation # anemia. Iron replete. Possibly occult blood loss in the setting of his systemic anticoagulation versus is MDS versus other. # right heart strain. due to PH and hypervolemia. GAS SINGER 2049 and mildly elevated troponin PLAN # continue lasix and spironolactone for RV remodeling to be continued as an outpatient # given age and prior issues with bleeding on warfarin and rivaroxaban I suggest Eliquis 5 mg PO BID given safety profile and elderly patients. He is not ideal warfarin candidate given distance from healthcare facilities # sildenafil 20 PO TID (ordered) to be continued on as outpatient until we can get adempas approved (unlikely to happen for another 2-4 weeks) # consider zpack for empiric atypical infection given leukocytosis and imaging # may consider workup for anemia as outpatient. # outpatient follow up with [facility] in 1-2 weeks in pulmonary clinic DATA Hemoglobin WBC 12.4, hemoglobin 8.9, platelets 49, ferritin 426, troponin 3.8, vitamin B12 greater than a 1000, MCV 83 05/02/18 RHC RA 8, RV 62//13, PA 70/ (36), PAOP 14, TD CO (CI) 5.47 (3.02), Yasmeen CO 4.65 (2.57), no acute vasoreactivity to IV epoprostenol 05/02/18 IMAGING 04/30/2018 CTA chest evidence of mild right heart strain, interval resolution of acute thrombus in right main PA, vessel dropout and right middle and right lower lobes as well as some evidence of distal thromboembolic disease in bilateral lower lobes,. Lymphatic nodularity and thickening in right lower lobe. Bronchial collaterals present, possible infarct in superior segment of right lower lobe, small bilateral nodules unchanged was a continuation present. 05/03/18 13:18 Subjective: Underwent right heart catheterization to confirm pulmonary hypertension due to chronic thromboembolic disease yesterday. Acute vasoreactivity test negative. Continues to diurese well. Tolerating sildenafil. Feels somewhat better this morning. No fevers, chills, nausea vomiting, no headaches, no presyncope Objective: Vital Signs Temp Pulse Resp BP Pulse Ox 36.6 C 62 18 113/51 L 93 05/03/18 08:00 05/03/18 08:00 05/03/18 08:00 05/03/18 09:38 05/03/18 08:00 Laboratory Results 05/03/18 03:30 05/01/18 03:36 05/02/18 05/03/18 05/04/18 05:59 05:59 05:59 Intake Total 50 260 Output Total 975 2170 Balance -925 -1910 Physical Exam - Physical Exam General Appearance: alert, no apparent distress EENT: PERRL/EOMI, normal ENT inspection, other (Hard of hearing) Neck: non-tender, full range of motion Respiratory: chest non-tender, lungs clear, other Cardiac/Chest: normal peripheral pulses, regular rate, rhythm, No edema Abdomen: normal bowel sounds, non-tender Skin: normal color, warm/dry, No cyanosis Neuro/Psych: no motor/sensory deficits, alert, normal mood/affect, oriented x 3 ICD10 Worksheet Patient Problems: Problems Problem Status Onset Acute on chronic respiratory failure Acute Elevated troponin Acute CAD - Coronary arteriosclerosis Active Pulmonary embolism Active Acute exacerbation of congestive heart failure Acute Chronic hypoxemic respiratory failure Acute Chronic obstructive pulmonary disease with acute exacerbation Acute Elevated troponin I level Acute Hypoxia Acute Palliative care encounter Acute Pulmonary embolism Acute
--- NOTE | 2018-05-03 17:31 | PDDCSUM ---
Discharge Summary Discharge Summary: Discharge diagnosis Acute on chronic hypoxemic respiratory failure Bilateral pulmonary embolism Pulmonary hypertension Patient was admitted with acute on chronic hypoxemic respiratory failure. CT showed pulmonary embolism although difficult to tell if this was acute or chronic. Patient has a history of chronic pulmonary embolism and has had issues with anticoagulation in the past along with compliance. Echocardiogram was obtained Pulmonary Medicine was consulted for further evaluation of his hypoxemia. Echocardiogram confirmed that he had pulmonary hypertension secondary to thromboembolic disease. Pulmonary Medicine recommended starting him on sildenafil 20 mg three times daily along with Eliquis 5 mg twice daily. He was started on these medications with no adverse side effects. He was discharged to follow up with his primary care physician along with Pulmonary Medicine for further evaluation and workup of his pulmonary hypertension and consideration of starting at [facility] Disposition [facility] facility New medications Eliquis 5 mg twice daily Sildenafil 20 mg three times daily I spent over 30 min on the discharge of this patient
--- NOTE | 2018-05-07 15:22 | PQFORM ---
PHYSICIAN QUERY FORM Needs Your Response This query form is being sent to you to assure this patient record is coded properly. Please respond to the question below: RIVETER HAND QUESTION: Dr Chowdhury Chart documentation reflects R heart strain/failure 2/2 Pulmonary Hypertension but is not mentioned in the Discharge Summary. Did this patient have Acute R Heat Strain/Failure ? ___ Yes ___ No ___ Other (please Specify ) _x__ Unable to determine Thank You Larisa TORRES Manager [employer] INSTRUCTIONS FOR RESPONSE: Answer question by clicking on the "Edit Document" button. Move cursor to area below the stars. When complete, hit "Save." Click on the "Sign" button, then click "Sign" again. Type in your PIN and hit "Enter." MTDD
== END 2018-05-03 14:43 | DRG 189 ==
LOC: F2W 17:12
PROVIDERS: ADMIT Internal Medicine; ATTEND Internal Medicine
PROC: B2111ZZ Fluoroscopy of Multiple Coronary Arteries using Low Osmolar Contrast (ICD-10-PCS; principal; 2018-05-02)
PROC: 4A023N6 Measurement of Cardiac Sampling and Pressure, Right Heart, Percutaneous Approach (ICD-10-PCS; principal; 2018-05-02)
DX: J96.21 Acute and chronic respiratory failure with hypoxia (principal); I27.24 Chronic thromboembolic pulmonary hypertension; I26.99 Other pulmonary embolism without acute cor pulmonale; D64.9 Anemia, unspecified; Z99.81 Dependence on supplemental oxygen; I25.10 Atherosclerotic heart disease of native coronary artery without angina pectoris; Z95.5 Presence of coronary angioplasty implant and graft; Z85.46 Personal history of malignant neoplasm of prostate; I69.351 Hemiplegia and hemiparesis following cerebral infarction affecting right dominant side
CPT/HCPCS: 82607-90; 84484-ER; 97116-GP; 97161-GP; 97165-GO; 97535-GO; J1325; J1644; J1650; J2250; J3010; Q9967